=== PATIENT | female | born 1945 | race Caucasian/White ===

== ENCOUNTER 2025-01-23 10:42 | Outpatient (REF) | payer OTHER, SELFPAY ==
--- OUTSIDE RECORDS SUMMARY | 2025-01-23 11:31 | XMS_ITS | Encounter Summary ---
Author Organization [facility] Address [address] [place] [id number] Phone Care Team Providers Care Regional Account Director Name Role Phone Jeb Devlin MD Primary Care Provider [phone] Encounter Details Date Type Department Care Team ([facility] st Contact Info) Description 07/23/2024 Procedure [facility] Scan - [address] [address] Social History Tobacco Use Types Packs/Day Years Used Date Smoking Tobacco: Never Smokeless Tobacco: Never Alcohol Use Standard Drinks/Week Comments Not Currently 0 (1 standard drink = 0.6 oz pur e alcohol) Education Answer Date Recorded Are you interested in more education? Not on debbie e 10/21/2022 Are you concerned about learning? Not on file 10/21/2022 No 10/21/2022 No 10/21/2022 Food Answer Date Recorded Within the past 6 months we worried whether our food would run out before we got money to buy more. Never True 07/24/2024 Within the past 6 months the food we bought just didn't last and we didn't have enough money to get more. Never True Residential Stability Answer Date Recor ded What is your housing situation today? I have paulo sing 07/24/2024 How many times have you move d in the past 12 months? Zero (I did not move) 07/24/2024 Paying for Meds Answer Date Recorded Do you have trouble paying for medicines? No 07/24/2024 Paying Utility Bills Answer Date Record ed Do you have trouble paying your heating or elect ricity bill? No 07/24/2024 Transportation Answer Date Recorded Has the lack of transportati on kept you from medical appointments or from getting medications? No 07/24/2024 Digital Access Answer Date Recorded No 07/24/2024 Yes 07/24/2024 Do you have reliable internet access at home? Ye s 07/24/2024 Do you have a device (e.g., phone, tablet, computer) with a working camera? Yes 07/24/2024 Intimate Partner Violence Answer Date R ecorded Are you denied basic needs s uch as food, clothing, or medical care? No 07/23/2024 In the past 12 months have y ou been in a relationship with a person who hurts, threatens, or tries to control you? No 07/23/2024 Are you denied basic needs s uch as food, clothing, or medical care? No 07/23/2024 In the past 12 months have y ou been in a relationship with a person who hurts, threatens, or tries to control you? No 07/23/2024 Comments Unknown Sex and Gender Information Value Date Recorded Sex Assigned at Female 07/23/2024 3:51 PM EST Legal Sex Female 10:08 PM EDT Gender Identity Female 07/23/2024 3:51 PM EST Sexual Orientation Straight 07/24/2024 9: 38 AM EST documented as of this encounter Functional Status * Calculated C-SSRS Risk Score (Lifetime/Recent) Answer Date of Assessment Author No Risk Indicated 07/23/2024 3:51 PM Gilda Liao, DELANEY * [place] Suicide Severity Rating Scale (Screener/Recent Self-Report) Question Answer Date of Assessment Author 1. Wish to be (Past 1 Month) No 025 3:51 PM Gilda Liao, DELANEY 2. Non-Specific Active Suici ethan Thoughts (Past 1 Month) No 07/23/2024 3:51 PM Gilda Liao , DELANEY 6. Suicidal Behavior (Lifetime) No 3:51 PM Gilda Liao, RN documented as of this encounter Plan of Treatment Not on file documented as of this encounter Visit Diagnoses Not on filedocumented in this encounter Additional Health Concerns Infection Onset Date Last Indicated Resolved Time CoV-Risk 07/23/2024 07/23/2024 08/03/2024 1:22 AM EST Influenza A 07/23/2024 07/23/2024 07/30/2024 1:23 AM EST documented as of this encounter Care Teams Regional Account Director Relationship Specialty Start Date End Date Jeb Devlin MD [address] [address] PCP - General Internal Medicine 09/29/22 documented as of this encounter Additional Source Comments The information contained in this document represents components of the legal health record. It is not the complete legal health record.[facility]
--- OUTSIDE RECORDS SUMMARY | 2025-01-23 11:31 | XMS_ITS | Referral Summary ---
Author Organization [facility] Address [address] [place] [address] Care Team Providers Care Performance Architect Name Role Phone Jeb Devlin Primary Care Provider [phone] Allergies Active Allergy Reactions Criticality Noted Date Comments Minocycline Hives 12/07/2016 Sulfa (Sulfonamide Antibiotics) Hives,Rash High 06/27 Tetracyclines Hives High Medications blood glucose diagnostic test strip BLUE : TEST TWICE DAILY FOR DIABETES 250.02 6 Active simvastatin (ZOCOR) 40 mg tablet TAKE 1 TABLET DAILY IN THE EVENING. 90 tablet 3 8 Active atenolol (TENORMIN) 25 mg tablet Taking 12.5mg per day 7 Active metFORMIN (GLUCOPHAGE) 500 mg tablet Take 1 tablet (500 mg total) by mouth 2 times a day with meals. 180 tablet 3 9 Active amoxicillin (AMOXIL) 500 mg capsule Take 4 capsules (2,000 mg total) by mouth once as needed (one hour prior to dental work) for up to 1 dose. 12 capsule 2 0 Active econazole nitrate 1% cream Apply topically to the affected area once a day. 30 g 3 1 Active blood glucose diagnostic lancet 33 gauge 2 Active acetaminophen (TYLENOL) 325 mg tablet Take 2 tablets (650 mg total) by mouth every 6 hours. 2 Active escitalopram (LEXAPRO) 10 mg tablet Take 1 tablet (10 mg total) by mouth once a day. 2 Active levothyroxine (SYNTHROID, LEVOTHROID) 88 mcg tablet Take 1 tablet (88 mcg total) by mouth daily. 2 Active spironolactone (ALDACTONE) 50 mg tablet Take 1 tablet (50 mg total) by mouth daily. May resume in 1 week if BP>125/80 90 tablet 3 2 Active aspirin 81 mg EC tablet Take 81 mg by mouth once a day. Active calcium carbonate-vitam in D3 250 mg-125 units tablet tablet Take 1 tablet by mouth once a day. Active calcium carbonate-vitam in D3-minerals (Caltrate 600-D Plus Minerals) 600 mg calcium- 800 unit-40 mg tablet,chewable chewable tablet Caltrate 600 A ctive Active Problems Problem Noted Date Diagnosed Date Overactive bladder 09/22/2022 Acquired hammer toe of left foot 04/12/2022 Acquired hammer toe of right foot 04/12/2022 Trigger ring finger of left hand 03/21/2022 Overview (03/21/2022): Added automatically from request for surgery [id number] Arthritis of right knee 10/06/2021 Pathological fracture of left scapula with delay ed healing 09/28/2021 Primary osteoarthritis of left knee 08/15/2019 Intraductal papilloma of left breast 03/08/2018 Overview (03/08/2018): Added automatically from request for surgery [id number] Assessment & Plan (04/16/2018 3:01 PM EDT): Recovering well from excisional biopsy. No evidence of malignancy or atypia on pathology. Healing well. May return to routine follow up with PCP. Copy of pathology given for records. Intraductal papilloma of breast 01/10/2018 Assessment & Plan (03/07/2018 6:39 PM EDT): Newly diagnosed left breast peripheral duct papilloma. I discussed the options at length with the patient today, and have recommended needle localization lumpectomy. I discussed the risks and benefits of surgery, as well as the expected postoperative recovery. I will plan on getting her surgery scheduled at her convenience. All of her questions were answered. 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/2017 Arthritis of carpometacarpal (CMC) joints of bot h thumbs 03/10/2017 Osteoarthritis of carpometac arpal (CMC) joint of right thumb, unspecified osteoarthritis type 10/27/2016 Post-traumatic osteoarthritis of right knee 07/28 Primary osteoarthritis of left knee 08/23/2016 Cough 05/13/2016 Lower back pain 11/03/2015 Screening for colon cancer 09/29/2015 Pain in joint, hand 04/09/2015 Carpal tunnel syndrome 03/17/2015 Thumb pain, right 03/17/2015 Bilateral knee pain 11/26/2014 Aftercare following bilateral hip joint replacem ent surgery 08/28/2014 Type 2 diabetes mellitus without complication Obesity 04/17/2014 Primary osteoarthritis of both hips 02/06/2014 History of stroke 07/03/2013 Vitamin d deficiency 04/10/2013 History of left hip replacement 09/27/2011 Hypothyroidism 03/01/2009 Hypercholesterolemia 03/01/2009 Hypertension 03/01/2009 Gait instability Impaired mobility Resolved Problems Problem Noted Date Diagnosed Date Resolved Date Anemia 09/23/2015 02/19/2021 Low vitamin B12 level 05/29/20142020 Urinary incontinence 10/08/2013 021 Immunizations Immunization Administration Dates Next Due INFLUENZA, SPLIT VIRUS, TRIVALENT, PF 04/01/2016 Influenza, Trivalent, MDV, Injectable 03/19/2014 Pneumococcal Conjugate Vaccine, 13 Valent 2016 Pneumococcal Polysaccharide Vaccine, 23 Valent 0 03/24/2008 Tetanus and Diphtheria Toxoi ds, Adsorbed, Preservative Free, for Adult Use (5 Lf of Tetanus Toxoid and 2 Lf of Diphtheria Toxoid) 05/08/2008 Social History Tobacco Use Types Packs/Day Years Used Date Smoking Tobacco: Never Smokeless Tobacco: Never Tobacco Cessation:Counseling Given: Not Answered Comments:: Alcohol Use Standard Drinks/Week Comments Yes 1 (1 standard drink = 0.6 oz pur e alcohol) Comments No Sex and Gender Information Value Date Recorded Sex Assigned at Female 01/23/2021 11:59 AM EDT Legal Sex Female 11:59 PM EDT Gender Identity Female 11/27/2019 10:38 AM EDT Sexual Orientation Straight 11/27/2019 10 :38 AM EDT Last Filed Vital Signs Vital Sign Reading Time Taken Comments Blood Pressure 128/64 10/27/2022 10:33 AM EDT Pulse 55 10/11/2021 12:44 PM EDT Temperature 36.8 C (98.2 F) 08/02/2022 8:50 AM EST Respiratory Rate 18 10/11/2021 12:44 PM EDT Oxygen Saturation 96% 10/11/2021 12:44 PM EDT Inhaled Oxygen Concentration - - Weight 83 kg (183 lb) 10/14/2024 9:57 AM EDT Height 152.4 cm (5') 10/14/2024 9:57 AM EDT Body Mass Index 35.74 10/14/2024 9:57 AM EDT Plan of Treatment Not on file Medical Devices Implanted Type Area Fur Operator Device Identifier Shelf Expiration Date Model / Serial / Lot Cement Tobramycin Impreganated Simplex P - [id number] Implanted:Qty: 2 on 08/15/2019 by Jose Luis Kim MD at [facility] Implant Left: Knee DU 12/23/2020 6197-9-00 1 / / [id number] Base Tibial Fixed Bearing Cemented Size 5 Attune - [id number] Implanted:Qty: 1 on 08/15/2019 by Jose Luis Kim MD at [facility] Implant Left: Knee DEPUY 05/25/2029 1506-70-0 05 / [id number] Patella Medialized Dome Cemented Aox Single Use Latex Free 32mm Attune - [id number] Implanted:Qty: 1 on 08/15/2019 by Jose Luis Kim MD at [facility] Implant Left: Knee DEPUY 03/25/2024 1518-20-0 32 / / [id number] Component Femoral Posterior Stabilized Cemented Narrow Left Sterile Latex Free Size 6n Attune - [id number] Implanted:Qty: 1 on 08/15/2019 by Jose Luis Kim MD at [facility] Implant Left: Knee DEPUY 04/25/2029 1504-10-1 26 / / [id number] Insert Tibial Fiexd Bearing Posterior Stabilizing Sterile Latex Free Size 6 5mm Attune - [id number] Implanted:Qty: 1 on 08/15/2019 by Jose Luis Kim MD at [facility] Implant Left: Knee DEPUY 02/24/2024 1516-40-6 05 / / [id number] Insert Tibial Fixed Bearing Posterior Stabilized Size 5 6mm Attune - [id number] Implanted:Qty: 1 on 10/06/2021 by Jose Luis Kim MD at [facility] Implant Right: Knee DEPUY 09/24/2023 1516-40-5 06 / / [id number] Cement Tobramycin Impreganated Simplex P - [id number] Implanted:Qty: 2 on 10/06/2021 by Jose Luis Kim MD at [facility] Implant Right: Knee DU 12/23/2022 6197-9-00 1 / / [id number] Base Tibial Fixed Bearing Cemented Size 5 Attune - [id number] Implanted:Qty: 1 on 10/06/2021 by Jose Luis Kim MD at [facility] Implant Right: Knee DEPUY 04/25/2031 1506-70-0 05 / / [id number] Patella Medialized Dome Cemented Aox Single Use Latex Free 32mm Attune - [id number] Implanted:Qty: 1 on 10/06/2021 by Jose Luis Kim MD at [facility] Implant Right: Knee DEPUY 08/23/2025 1518-20-0 32 / / [id number] Component Femoral Posterior Stabilized Cemented Right Sterile Latex Free Size 5 Attune - [id number] Implanted:Qty: 1 on 10/06/2021 by Jose Luis Kim MD at [facility] Implant Right: Knee DEPUY 08/23/2030 1504-10-2 05 / / [id number] Screw Cannulated Self-Tapping Self-Drilling Partial Threaded Stainless Steel 4.7gju04lf - [id number] Implanted:Qty: 1 on 10/06/2021 by Jose Luis Kim MD at [facility] Screw Right: Knee DEPUY [employer]ES 214.568 / / Screw Cannulated Self-Tapping Self-Drilling Partial Threaded Stainless Steel 4.4fhn27hl - [id number] Implanted:Qty: 1 on 10/06/2021 by Jose Luis Kim MD at [facility] Screw Right: Knee DEPUY [employer] SALES 214.572 / / Screw Cannulated Self-Tapping Self-Drilling Partial Threaded Stainless Steel 4.1skm99nw - [id number] Implanted:Qty: 1 on 10/06/2021 by Jose Luis Kim MD at [facility] Screw Right: Knee [employer] 214.554 / / Procedures * Due to [place] state law, this organization might not be sharing negative HIV tests. Procedure Name Priority Date/Time Associated Diagnosis Comments ROBIN LEFT STEREOTACTIC BREAST BIOPSY Routine 10/14/2024 10:48 AM EDT Breast calcifications BASIC METABOLIC PANEL Timed 2021 3:59 AM EDT HEMOGLOBIN A1C Routine 09/21/2021 1:25 PM EDT Preop testing Post-traumatic osteoarthritis of right knee HM DIABETES EYE EXAM Routine 09/04/2018 MICROALBUMIN, RANDOM URINE WITH CREATININE Routine 11/18/2016 8:44 AM EDT COLONOSCOPY 04/05/2016 7:44 AM EDT from Last 3 Months or Most Recently Relevant to Health Maintenance Results * Due to [place] state law, this organization might not be sharing negative HIV tests. * ROBIN Left Stereotactic Breast Biopsy (10/14/2024 10:48 AM EDT) Anatomical Region Laterality Modality Breast Left Mammography Addenda Addendum by Adraina Parham MD on 10/15/2024 9:41 PM EDT Pathology: A. Left breast, needle biopsy (calcifications): Breast tissue with fibroadenomatous change and coarse calcifications; no atypia or malignancy identified. B. Left breast, needle biopsy (no calcifications): Breast tissue within normal limits; no atypia or malignancy identified. Concordance: Pathology findings are benign and concordant with imaging findings. Recommendation: Return to annual screening mammography schedule Narrative 10/14/2024 12:34 PM EDT Gabbie Miles Exam Date: 10/14/[address] [address] ROBIN Left Stereotactic Breast Biopsy ROBIN Left Breast Specimen NC ROBIN Left Diagnostic Digital Mammo Post US/MRI/Stereo INDICATIONS Gabbie Miles is a 79 y.o. female and is seen for: ROBIN Left Stereotactic Breast Biopsy ROBIN Left Breast Specimen NC ROBIN Left Diagnostic Digital Mammo Post US/MRI/Stereo. PROCEDURE The procedure was explained to the patient including benefits and alternatives. The risks, including but not limited to infection and bleeding, were reviewed and the patient agreed to undergo the procedure, signing the consent form. The breast was prepped for the procedure and the area was anesthetized with a local anesthetic. The patient's Left breast was imaged with the [facility] digital mammography unit, and the following findings were obtained: Lower inner breast grouped calcifications are redemonstrated. A Eviva needle was placed in the target using medial approach. Then one passes were made through the area and seven specimens were obtained. A Top-Hat micromarker was placed at the site of the procedure. Specimen radiograph demonstrates calcifications in 1 of the core samples. COMPLICATIONS The patient experienced no complications during the procedure. POST PROCEDURE MAMMOGRAM The patient was then moved to a digital mammographic room where CC and ML90 full field digital mammographic images of the breast were obtained. These show satisfactory placement of the micromarker. IMPRESSION Technically successful left breast stereotactic biopsy. Pathology pending. If this radiology report contains a blank impression section, it is an incomplete radiology report. Please contact the interpreting radiologist or applicable radiology division as soon as possible to obtain the completed interpretation. Adriana Parham MD [facility] PROCEDURES Edited Result - Final * (ABNORMAL) Basic Metabolic Panel (2021 3:59 AM EDT) NA 134(L) 135 - 145 mmol/L 2021 4:55 AM EDT [facility] K 4.6 3.5 - 5.3 mmol/L 2021 4:55 AM EDT [facility] Cl 105 97 - 110 mmol/L 2021 4:55 AM EDT [facility] CO2 25 24 - 32 mmol/L 2021 4:55 AM EDT [facility] BUN 13 7 - 23 mg/dL 2021 4:55 AM EDT [facility] Creatinine 0.70 0.50 - 1.20 mg/dL 2021 4:55 AM EDT [facility] Glucose 156(H) 70 - 99 mg/dL 2021 4:55 AM EDT [facility] Calcium 7.8(L) 8.7 - 10.7 mg/dL 2021 4:55 AM EDT [facility] Anion Gap 4(L) 5 - 15 2021 4:55 AM EDT [facility] eGFR 90 >=90 mL/min/1. 73m2 2021 4:55 AM T [facility] Comment: Estimated Glomerular Filtration Rate (GFR) calculated using the CKD-EPI refit equation. The different stages of CKD form a continuum. The stages of CKD are classified as follows : Stage 1: Kidney damage with normal or increased GFR (>90 mL/min/1.73 m2) Stage 2: Mild reduction in GFR (60-89 mL/min/1.73 m2) Stage 3a: Moderate reduction in GFR (45-59 mL/min/1.73 m2) Stage 3b: Moderate reduction in GFR (30-44 mL/min/1.73 m2) Stage 4: Severe reduction in GFR (15-29 mL/min/1.73 m2) Stage 5: Kidney failure (GFR < 15 mL/min/1.73 m2 or dialysis) Blood Structure of peripheral vein / Unknown Venipuncture / Unknown 2021 3:59 AM EDT 2021 4:32 AM EDT us Jose Luis Kim MD LAB BLOOD ORDERABLES Final Res ult [facility] [address] [place] [address], * (ABNORMAL) Hemoglobin A1c (09/21/2021 1:25 PM EDT) Hemoglobin A1C 6.2(H) <5.7 % of total Hgb 09/22/2021 4:39 AM EDT [facility] Comment: For someone without known diabetes, a hemoglobin A1c value between 5.7% and 6.4% is consistent with prediabetes and should be confirmed with a follow-up test. For someone with known diabetes, a value <7% indicates that their diabetes is well controlled. A1c targets should be individualized based on duration of diabetes, age, comorbid conditions, and other considerations. This assay result is consistent with an increased risk of diabetes. Currently, no consensus exists regarding use of hemoglobin A1c for diagnosis of diabetes for children. eAG (MG/DL) 131 mg/dL 09/22/2021 4:39 AM EDT [facility] eAG (MMOL/L) 7.3 mmol/L 09/22/2021 4:39 AM EDT [facility] Blood Structure of peripheral vein / Unknown Venipuncture / Unknown 09/21/2021 1:25 PM EDT 09/21/2021 3:16 PM EDT Narrative [facility] - 09/22/2021 4:39 AM EDT [facility] Received Date: Vaibhav Carmona MD LAB BLOOD ORDERABLES Final Result [facility] [address], [place] [address], [place] [phone] [employer] [facility] [address], [place] [address], [place] [phone] * Eye Exam, Diabetic (09/04/2018) us Unknown Provider HEALTH MAINTENANCE Final Res ult * Microalbumin/Creatinine Urine, Random (11/18/2016 8:44 AM EDT) Creatinine, Random Urine 189 20 - 320 mg/dL [facility] Microalbumin 1.2 mg/dL [facility] Comment: Reference Range Not established Microalbumin/Crea tinine Ratio, Random Urine 6 <30 mcg/mg creat [employer] [facility] Comment: . The ADA defines abnormalities in albumin excretion as follows: . Category Result (mcg/mg creatinine) . Normal <30 Microalbuminuria 30-299 Clinical albuminuria > OR = 300 . The ADA recommends that at least two of three specimens collected within a 3-6 month period be abnormal before considering a patient to be within a diagnostic category. 11/18/2016 8:44 AM EDT 11/18/2016 5:16 PM EDT Narrative [employer] [facility] - 11/19/2016 9:00 AM EDT Report Comments: Received Date: [id number] us Stewart Nazario MD LAB URINE ORDERABLES Fin al Result [employer] [address], [facility] [place] [address], * COLONOSCOPY (04/05/2016 7:44 AM EDT) Narrative Procedure Note Eldon Stringer MD - 04/05/2016 7:44 AM EDT Patient Name: Gabbie Miles Procedure Date: 04/05/2016 7:44AM Date of : 1945 Admit Type: Outpatient Age: 70 Room: Room 1 Gender: Female Note Status: Finalized Attending MD: Eldon Stringer MD Procedure: Colonoscopy Indications: High risk colon cancer surveillance: Personal history of colonicpolyps Comorbidities Providers: Eldon Stringer MD Referring MD: Stewart Nazario MD (Referring MD) Requesting Provider: Medicines: Fentanyl 100 micrograms IV, Midazolam 5 mg IV Complications: No immediate complications. Estimated Blood Loss: Estimated blood loss: none. Procedure: After I obtained informed consent, the scope was passed under direct vision. Throughout the procedure, the patient's blood pressure, pulse, and oxygen saturations were monitored continuously. The Colonoscope was introduced through the anus and advanced to the cecum, identified by appendiceal orifice and ileocecal valve.The colonoscopy was technically difficult and complex dueto multiple diverticula in the colon and unsatisfactorybowel prep. Successful completion of the procedure was aidedby increasing the dose of sedation medication, usingmanual pressure and lavage. The patient tolerated theprocedure well. The quality of the bowel preparation was adequateto identify polyps. The bowel preparation used wasMiralax. Findings: The perianal and digital rectal examinations were normal. A small polyp was found in the cecum. The polyp was sessile. Thepolyp was removed with a hot biopsy forceps. Resection and retrieval were complete. Estimated blood loss: none. Multiple small and large-mouthed diverticula were found in thesigmoid colon, in the descending colon and in the transverse colon. The retroflexed view of the distal rectum and anal verge was normaland showed no anal or rectal abnormalities. Impression: - One small polyp in the cecum. Resected andretrieved. - Diverticulosis in the sigmoid colon, in thedescending colon and in the transverse colon. - The distal rectum and anal verge are normal on retroflexion view. Recommendation: - Await pathology results. - Discharge patient to home (ambulatory). - Repeat colonoscopy in 3 years for surveillance basedon pathology results. Eldon Stringer MD 04/05/2016 9:22:55 AM This report has been signed electronically. Number of Addenda: 0 Note Initiated On: 04/05/2016 7:44 AM Eldon Stringer MD PROVATION PROCEDURES Final Resu lt from Last 3 Months or Most Recently Relevant to Health Maintenance Insurance [facility] Advance Directives Documents on File Type Date Recorded Patient [place] Worker Expl anation Health Care Proxy 10/06/2021 10:11 AM Health Care Proxy 01/12/2021 Health Care Proxy 08/05/2019 8:57 AM Advance Directive 01/22/2016 12:00 AM Adva nce Care Directives Health Care Proxy 01/17/2016 12:00 AM [facility] Care Proxy Advance Directive 08/18/2014 12:00 AM angeline M edical Dec Making (Adv.Dir) Advance Directive 08/17/2014 12:00 AM Adva nce Care Directives * Full Code (Latest Code Status on File) Date Activated Date Inactivated Comments 10/06/2021 4:11 PM 10/11/2021 7:31 PM * Presumed Full Code Date Activated Date Inactivated Comments 10/06/2021 9:24 AM 10/06/2021 4:11 PM * Full Code Date Activated Date Inactivated Comments 08/15/2019 3:33 PM 08/17/2019 7:01 PM * Presumed Full Code Date Activated Date Inactivated Comments 08/15/2019 7:48 AM 08/15/2019 3:33 PM * Full Code Date Activated Date Inactivated Comments 04/06/2018 6:44 AM 04/06/2018 4:39 PM Care Teams Performance Architect Relationship Specialty Start Date End Date Jeb Devlin NPNa: [phone] [address] [place] [address] PCP - General Internal Medicine 02/27/19
[2025-01-23 12:15] LABS: Alanine Aminotransferase 14 U/L (0-31); Albumin Level 4.2 g/dL (3.5-5.0); Alkaline Phosphatase 62 U/L (39-117); Anion Gap 12 (12-20); Aspartate Amino Transferase 29 U/L (5-31); Blood Urea Nitrogen 13 mg/dL (9-16); Calcium 8.8 mg/dL (8.4-10.2); Carbon Dioxide 27 mmol/L (22-29); Chloride 106 mmol/L (96-108); Cholesterol 184 mg/dL (<200); Estimated Glomerular Filt Rate > 60; HDL Cholesterol 40 mg/dL (>40); Potassium 4.3 mmol/L (3.3-5.1); Sodium 141 mmol/L (135-145); Total Protein 7.3 g/dL (6.5-8.0); Triglycerides 203 mg/dL (<150)
[2025-01-23 12:31] LABS: Thyroid Stimulating Hormone 1.18 uIU/mL (0.32-4.0)
[2025-01-23 12:39] LABS: Folate 5.4 ng/mL (> or = 4.0); Vitamin B12 152 pg/mL (200-900)
[2025-01-23 12:51] LABS: Microalbum/Creatinine Ratio Ur 8.2 ug/mg cr (<30)
== END 2025-01-23 10:43 | disposition home or self-care (01) ==
LOC: HO.LAB 10:42
PROVIDERS: PCP Internal Medicine; Visit Provider Internal Medicine
DX: E11.9 Type 2 diabetes mellitus without complications (principal); R41.3 Other amnesia; E03.9 Hypothyroidism, unspecified; E78.5 Hyperlipidemia, unspecified; R80.9 Proteinuria, unspecified
CPT/HCPCS: 36415; 80053; 80061; 82043; 82570; 82607; 82746; 84443

== ENCOUNTER 2025-01-27 09:29 | Outpatient (REF) | payer OTHER, SELFPAY ==
--- OUTSIDE RECORDS SUMMARY | 2025-01-27 09:59 | XMS_ITS | Referral Summary ---
Author Organization [facility] Address [address] [place] [address] Care Team Providers Care Heating Systems Installer Name Role Phone Jeb Devlin Primary Care Provider [phone] Allergies Active Allergy Reactions Criticality Noted Date [...] (03/21/2022): Added automatically from request for surgery [id number] Arthritis of right knee 10/06/2021 Pathological fracture of left scapula with delay ed healing 09/28/2021 Primary osteoarthritis of left knee 08/15/2019 Intraductal papilloma of left breast 03/08/2018 Overview (03/08/2018): Added automatically from request for surgery [id number] Assessment & Plan (04/16/2018 3:01 PM EDT): [...] on file Medical Devices Implanted Type Area Pipe Coverer Helper Device Identifier Shelf Expiration Date Model / Serial / Lot Cement Tobramycin Impreganated Simplex P - [id number] Implanted:Qty: 2 on 08/15/2019 by Jose Luis Kim MD at [facility] Implant Left: Knee DU 12/23/2020 6197-9-00 1 / / [id number] Base Tibial Fixed Bearing Cemented Size 5 Attune - [id number] Implanted:Qty: 1 on 08/15/2019 by Jose Luis Kim MD at [facility] Implant Left: Knee DEPUY 05/25/2029 1506-70-0 05 / [id number] Patella Medialized Dome Cemented Aox Single Use Latex Free 32mm Attune - [id number] Implanted:Qty: 1 on 08/15/2019 by Jose Luis Kim MD at [facility] Implant Left: Knee DEPUY 03/25/2024 1518-20-0 32 / / [id number] Component Femoral Posterior Stabilized Cemented Narrow Left Sterile Latex Free Size 6n Attune - [id number] Implanted:Qty: 1 on 08/15/2019 by Jose Luis Kim MD at [facility] Implant Left: Knee DEPUY 04/25/2029 1504-10-1 26 / / [id number] Insert Tibial Fiexd Bearing Posterior Stabilizing Sterile Latex Free Size 6 5mm Attune - [id number] Implanted:Qty: 1 on 08/15/2019 by Jose Luis Kim MD at [facility] Implant Left: Knee DEPUY 02/24/2024 1516-40-6 05 / / [id number] Insert Tibial Fixed Bearing Posterior Stabilized Size 5 6mm Attune - [id number] Implanted:Qty: 1 on 10/06/2021 by Jose Luis Kim MD at [facility] Implant Right: Knee DEPUY 09/24/2023 1516-40-5 06 / / [id number] Cement Tobramycin Impreganated Simplex P - [id number] Implanted:Qty: 2 on 10/06/2021 by Jose Luis Kim MD at [facility] Implant Right: Knee DU 12/23/2022 6197-9-00 1 / / [id number] Base Tibial Fixed Bearing Cemented Size 5 Attune - [id number] Implanted:Qty: 1 on 10/06/2021 by Jose Luis Kim MD at [facility] Implant Right: Knee DEPUY 04/25/2031 1506-70-0 05 / / [id number] Patella Medialized Dome Cemented Aox Single Use Latex Free 32mm Attune - [id number] Implanted:Qty: 1 on 10/06/2021 by Jose Luis Kim MD at [facility] Implant Right: Knee DEPUY 08/23/2025 1518-20-0 32 / / [id number] Component Femoral Posterior Stabilized Cemented Right Sterile Latex Free Size 5 Attune - [id number] Implanted:Qty: 1 on 10/06/2021 by Jose Luis Kim MD at [facility] Implant Right: Knee DEPUY 08/23/2030 1504-10-2 05 / / [id number] Screw Cannulated Self-Tapping Self-Drilling Partial Threaded Stainless Steel 4.6obx01ur - [id number] Implanted:Qty: 1 on 10/06/2021 by Jose Luis Kim MD at [facility] Screw Right: Knee DEPUY [employer] 214.568 / / Screw Cannulated Self-Tapping Self-Drilling Partial Threaded Stainless Steel 4.4bqa69wq - [id number] Implanted:Qty: 1 on 10/06/2021 by Jose Luis Kim MD at [facility] Screw Right: Knee DEPUY [employer] 214.572 / / Screw Cannulated Self-Tapping Self-Drilling Partial Threaded Stainless Steel 4.6sqi07uv - [id number] Implanted:Qty: 1 on 10/06/2021 by Jose Luis Kim MD at [facility] Screw Right: Knee [employer] 214.554 / / Procedures * Due to [place] state law, this organization might not be [...] to Health Maintenance Results * Due to [place] state law, this organization might not be sharing negative HIV tests. * ROBIN Left Stereotactic Breast Biopsy (10/14/2024 10:48 AM EDT) Anatomical Region Laterality Modality Breast Left Mammography Addenda Addendum by Adriana Parham MD on 10/15/2024 9:41 PM EDT [...] PM EDT Gabbie Miles Exam Date: 10/14/[address] [address] ROBIN Left Stereotactic Breast Biopsy ROBIN Left [...] patient's Left breast was imaged with the Apptiveia digital mammography unit, and the following findings [...] obtain the completed interpretation. Adriana Parham MD [facility] PROCEDURES Edited Result - Final * (ABNORMAL) Basic Metabolic Panel (2021 3:59 AM EDT) NA 134(L) 135 - 145 mmol/L 2021 4:55 AM EDT [facility] K 4.6 3.5 - 5.3 mmol/L 2021 4:55 AM EDT [facility] Cl 105 97 - 110 mmol/L 2021 4:55 AM EDT [facility] CO2 25 24 - 32 mmol/L 2021 4:55 AM EDT [facility] BUN 13 7 - 23 mg/dL 2021 4:55 AM EDT [facility] Creatinine 0.70 0.50 - 1.20 mg/dL 2021 4:55 AM EDT [facility] Glucose 156(H) 70 - 99 mg/dL 2021 4:55 AM EDT [facility] Calcium 7.8(L) 8.7 - 10.7 mg/dL 2021 4:55 AM EDT [facility] Anion Gap 4(L) 5 - 15 2021 4:55 AM EDT [facility] eGFR 90 >=90 mL/min/1. 73m2 2021 4:55 AM T [facility] Comment: Estimated Glomerular Filtration [...] MD LAB BLOOD ORDERABLES Final Res ult [facility] [address] [place] [address], * (ABNORMAL) Hemoglobin A1c (09/21/2021 1:25 PM EDT) Hemoglobin A1C 6.2(H) <5.7 % of total Hgb 09/22/2021 4:39 AM EDT [facility] Comment: For someone without known diabetes, a [...] (MG/DL) 131 mg/dL 09/22/2021 4:39 AM EDT [facility] eAG (MMOL/L) 7.3 mmol/L 09/22/2021 4:39 AM EDT [facility] Blood Structure of peripheral vein / Unknown Venipuncture / Unknown 09/21/2021 1:25 PM EDT 09/21/2021 3:16 PM EDT Narrative [facility] - 09/22/2021 4:39 AM EDT [facility] Received Date: Vaibhav Carmona MD LAB BLOOD ORDERABLES Final Result [facility] [address], [place] [address], [place] [phone] [facility] [employer] [facility] [address], [place] [address], [place] [phone] * Eye Exam, Diabetic (09/04/2018) us Unknown Provider HEALTH MAINTENANCE Final Res ult * Microalbumin/Creatinine Urine, Random (11/18/2016 8:44 AM EDT) Creatinine, Random Urine 189 20 - 320 mg/dL [facility] Microalbumin 1.2 mg/dL [facility] Comment: Reference Range Not established Microalbumin/Crea tinine Ratio, Random Urine 6 <30 mcg/mg creat [facility] [employer] [facility] Comment: . The ADA defines abnormalities in [...] AM EDT 11/18/2016 5:16 PM EDT Narrative [facility] [employer] [facility] - 11/19/2016 9:00 AM EDT Report Comments: Received Date: [id number] us Stewart Nazario MD LAB URINE ORDERABLES Fin al Result [facility] [address], [facility] [place] [address], * COLONOSCOPY (04/05/2016 7:44 AM EDT) Narrative [...] Most Recently Relevant to Health Maintenance Insurance [facility] Advance Directives Documents on File Type Date Recorded Patient Coin Purse Framer Expl anation Health Care Proxy 10/06/2021 10:11 AM Health Care Proxy 01/12/2021 Health Care Proxy 08/05/2019 8:57 AM Advance Directive 01/22/2016 12:00 AM Adva nce Care Directives Health Care Proxy 01/17/2016 12:00 AM [facility] Care Proxy Advance Directive 08/18/2014 12:00 [...] 6:44 AM 04/06/2018 4:39 PM Care Teams Heating Systems Installer Relationship Specialty Start Date End Date Jeb Devlin NPNa: [id number] [address] [place] [address] PCP - General Internal Medicine 02/27/19
--- OUTSIDE RECORDS SUMMARY | 2025-01-27 09:59 | XMS_ITS | Encounter Summary ---
Author Organization [facility] Address [address] [place] [address] Phone Care Team Providers Care Handbag Operator Name Role Phone Jeb Devlin MD Primary Care Provider [phone] Encounter Details Date Type Department Care Team ([facility] st Contact Info) Description 07/23/2024 Procedure Pass [facility], Ct Scan - [address] [address] Social History Tobacco Use Types Packs/Day Years [...] 07/23/2024 3:51 PM Gilda Liao, DELANEY * [place] Suicide Severity Rating Scale (Screener/Recent Self-Report) Question [...] documented as of this encounter Care Teams Handbag Operator Relationship Specialty Start Date End Date Jeb Devlin MD [address] [address] PCP - General Internal Medicine 09/29/22 documented as of this encounter Additional Source Comments The information contained in this document represents components of the legal health record. It is not the complete legal health record.[facility]
[2025-01-30 18:14] LABS: Intrinsic Factor Antibodies Negative (Negative)
== END 2025-01-27 09:30 | disposition home or self-care (01) ==
LOC: HO.LAB 09:29
PROVIDERS: Visit Provider Internal Medicine
DX: Z01.84 Encounter for antibody response examination (principal); E53.8 Deficiency of other specified B group vitamins
CPT/HCPCS: 36415; 83516; 86340

== ENCOUNTER 2025-01-30 09:02 | Outpatient (AMB) | payer MEDICARE, SELFPAY ==
--- NOTE | 2025-01-30 09:11 | A.OFFPC_ITS ---
Vital Signs 01/30/25 09:15 Height 4 ft 11.65 in Weight 178 lb BMI 35.2 BP 112/62 Blood Pressure Location Lt brachial Position Sitting Pulse 55 Pulse Source Pulse Oximeter Pulse Oximetry (%) 96 Oxygen Delivery Method Room Air Intake Visit Reasons: establish care Intake Note: Patient here to establish care Class A Regional Truck Driver Required: No Accompanied by: Self / Same As Patient Allergies Sulfa (Sulfonamide Antibiotics) Allergy (Severe, Verified 01/30/25 09:24) Hives Medication List - Last Reconciled 01/30/25 by Jennifer Paez MD atenolol 12.5 mg PO DAILY levothyroxine 88 mcg PO QAM lisinopril 10 mg PO DAILY simvastatin 40 mg PO QPM spironolactone 50 mg PO DAILY Tobacco use date assessed: 01/30/25 Fall risk assessment: No Falls in past year Last assessed Fall Risk: 01/30/25 Dental Screening Dental Screen Date: 01/30/25 Did you have a dental visit in the last 12 months?: Yes Did you have a dental problem in the last 6 months where you did not have access to dental care?: No Was dental information given to patient?: Patient has dentist HPI HPI Comments History of Present Illness Details The patient is a 79-year-old female presenting with the need to establish care and manage her chronic conditions. She has a history of diabetes mellitus type 2, with a current hemoglobin A1c of 7.5%. She is on metformin, although she does not recall the dosage. The patient also has hypercholesterolemia and is currently taking simvastatin 40 mg. She has been diagnosed with hypothyroidism and is on levothyroxine therapy. Hypertension is another chronic condition she manages with atenolol 12.5 mg and spironolactone. The patient is obese with a BMI of 35.2, and she acknowledges the need for dietary and exercise interventions. She has difficulty remembering things, which may impact her medication adherence and management of her conditions. Preventative care measures include a bone density screening, as she does not recall her last test. [facility] Surgical History History of History of surgery on left wrist Family History Mother No problems noted. Father Cancer Social History Housing: House Alcohol intake: current Alcohol intake frequency: a few times a month Alcohol type: wine Patient Tobacco Use Status: Never used Tobacco e-Cigarette/Vaping Use: Never Used Second Hand Smoke Exposure: No service: No Current occupational status: disabled Cognitive needs: No Hearing needs: No Vision needs: Yes Questionnaire PHQ-9 Over the last 2 weeks, how often have you been bothered by any of the following problems? 1. Little interest or pleasure in doing things: not at all 2. Feeling down, depressed, or hopeless: not at all 3. Trouble falling or staying asleep, or sleeping too much: not at all 4. Feeling tired or having little energy: not at all 5. Poor appetite or overeating: not at all 6. Feeling bad about yourself - or that you are a failure or have let yourself or your family down: not at all 7. Trouble concentrating on things, such as reading the newspaper or watching television: not at all 8. Moving or speaking so slowly that other people could have noticed. Or the opposite - being so fidgety or restless that you have been moving around a lot more than usual: not at all 9. Thoughts that you would be better off or of hurting yourself in some way: not at all Total score: 0 Depression Screening Interpretation: Negative Depression Screening Done: Yes 99150 - PHQ-9 Billing: Yes Source: Developed by Drs. Jose Wu, Mireya Manriquez, Jax Moran and colleagues, with an educational porfirio from [employer]. Thrive Questionnaire Date Thrive assessed: 01/30/25 I am a: Patient What is your living situation today?: I have a steady place to live Within the past 12 months, did the food you bought not last and you didn't have the money to get more?: Never true Within the past 12 months, did you worry whether your food would run out before you got money to buy more?: Never true Do you have trouble paying for medicines?: No Do you have trouble getting transportation to medical appointments?: No Do you have trouble paying your heating and electricity bill?: No Do you have trouble taking care of your child, family member or friend?: No Do you have trouble with day-to-day activities such as bathing, preparing meals, shopping, managing finances, etc.?: No Are you currently unemployed and looking for a job?: No Are you interested in more education?: No Please select the resources that you would like help with: None Currently or been in a relationship where the following occur: No concerns reported THRIVE Score: 0 AUDIT C Alcohol Use Questionnaire (AUDIT-C) 1. How often do you have a drink containing alcohol?: 2-4 times a month 2. How many drinks containing alcohol do you have on a typical day when you are drinking?: 1 or 2 3. How often do you have six or more drinks on one occasion?: Never Total Score: 2 Score Reviewed/Action Taken: No ACOSTA-7 AMB Questionnaire ACOSTA-7 Date ACOSTA - 7 assessed: 01/30/25 Feeling nervous, anxious, or on edge: 0 = Not at all Not being able to stop or control worryin = Not at all Worrying too much about different things: 0 = Not at all Trouble relaxin = Not at all Being so restless that it is hard to sit still: 0 = Not at all Becoming easily annoyed or irritable: 0 = Not at all Feeling afraid as if something awful might happen: 0 = Not at all Total ACOSTA-7 score (0-4 normal; 5-9 mild; 10-14 moderate; 15-21 severe): 0 Source: Developed by Drs. Jose Wu, Mireya Manriquez, Jax Moran and colleagues, with an educational porfirio from [employer]. ACOSTA-7 Assessment Billing ACOSTA-7 Assessment Tool: ACOSTA-7 Assessment 97871 Review of Systems Const All systems reviewed & are unremarkable except as noted in HPI and below Card Denies chest pain at rest, Denies chest pain with activity, Denies edema, Denies irregular heart rhythm, Denies claudication, Denies dyspnea, Denies dyspnea on exertion, Denies orthopnea, Denies paroxysmal nocturnal dyspnea and Denies slow heart rate Resp Denies cough, Denies dyspnea and Denies dyspnea on exertion GI Denies abdominal pain, Denies change in bowel habits, Denies excessive flatus, Denies nausea and Denies vomiting Physical exam (Primary Care) Vital Signs: Last Vital Signs Pulse 55 01/30/25 09:15 BP 112/62 01/30/25 09:15 Pulse Ox 96 01/30/25 09:15 Oxygen Delivery Method Room Air 01/30/25 09:15 BMI result Body Mass Index 35.2 BMI Assessment/Plan discussion: High BMI High, discussed plan: lifestyle, weight reduction, dietary and physical activity Tobacco/Smoking Status: Tobacco use Status Tobacco use date assessed 01/30/25 01/30/25 09:22 Patient Tobacco Use Status Never used Tobacco 01/30/25 09:22 e-Cigarette/Vaping Use Never Used 01/30/25 09:22 PHQ-9: PHQ-9 Score PHQ-9: Total score 0 01/30/25 09:36 Depression Screening Interpretation: Negative Thrive Assessment: Date of Thrive Assessment Date Thrive assessed 01/30/25 01/30/25 09:12 Currently or been in a relationship where the following occur: No concerns reported Resp Effort & Inspection: normal respiratory effort Auscultation: clear to auscultation bilaterally Cardio Jugular venous distension: no JVD Rate: regular rate Rhythm: regular rhythm Heart sounds: S1 normal heart sound present and S2 normal heart sound present Extrem General: Yes full ROM Results AMB Hemoglobin A1c AMB Hemoglobin A1c 7.5 % Last Edit by RHEA Walker on 01/30/25 09:4 6 Results Reviewed Results Reviewed: Laboratory Last Values Hgb A1c (Clinic) 7.5 % (4.0-6.0) H 01/30/25 09:45 Coding Level of Care Code New Pt Level 4 (73554) Complex EM visit Add On G2211 Diagnoses Type 2 diabetes mellitus with hyperglycemia, without long-term current use of insulin E11.65 Diabetes mellitus type: type 2 Diabetes mellitus jail insulin use: without petroleum terminal plant operator use Diabetes mellitus complication status: with hyperglycemia Essential hypertension I10 Acquired hypothyroidism E03.9 Pure hypercholesterolemia E78.00 Obesity, Class II, BMI 35-39.9 E66.812 Mild cognitive impairment G31.84 Additional Codes ACOSTA-7 Assessment Billing - ACOSTA-7 Assessment Tool: ACOSTA-7 Assessment 79920 ([id number]) PHQ-9 - 84961 - PHQ-9 Billing: Yes ([id number]) Time Spent (min) 26 Assessment & Plan Assessment & Plan (1) Diabetes mellitus: Code(s): E11.9 - Type 2 diabetes mellitus without complications Category: Medical Qualifiers: Diabetes mellitus type: type 2 Diabetes mellitus petroleum terminal plant operator insulin use: without jail use Diabetes mellitus complication status: with hyperglycemia Qualified Code(s): E11.65 - Type 2 diabetes mellitus with hyperglycemia (2) Essential hypertension: Code(s): I10 - Essential (primary) hypertension Category: Medical (3) Acquired hypothyroidism: Code(s): E03.9 - Hypothyroidism, unspecified Category: Medical (4) Pure hypercholesterolemia: Code(s): E78.00 - Pure hypercholesterolemia, unspecified Category: Medical (5) Obesity, Class II, BMI 35-39.9: Code(s): E66.812 - Obesity, class 2 Category: Medical (6) Mild cognitive impairment: Code(s): G31.84 - Mild cognitive impairment of uncertain or unknown etiology Category: Medical Plan The management plan includes continuing metformin for diabetes mellitus type 2, with a need to confirm the dosage. Simvastatin will be continued for hypercholesterolemia management. Levothyroxine will be maintained for hypothyroidism, and the patient should continue atenolol and spironolactone for hypertension control. A bone density screening will be ordered to assess osteoporosis risk. The patient is advised to engage in dietary modifications and regular exercise to address obesity. Vitamin and hemoglobin levels will be checked to evaluate her cognitive concerns. Calcium with vitamin D supplementation will be sent to the pharmacy to support bone health. Patient was informed and verbally consented to the use of an ambient scribe for clinic note documentation during this visit. Orders: Orders Complete Blood Count Auto Diff Today G31.84 - Mild cognitive impairment of uncertain or unknown etiology Lipid Panel Today E78.5 - Hyperlipidemia, unspecified Microalbumin, Random (w Creat) Today R80.9 - Proteinuria, unspecified Comprehensive [place]. Panel Fast Today E78.00 - Pure hypercholesterolemia, unspecified Thyroid Stimulating Hormone Today E03.9 - Hypothyroidism, unspecified Vitamin B12 and Folate Today G31.84 - Mild cognitive impairment of uncertain or unknown etiology XR DEXA axial skeleton Today Z78.0 - Asymptomatic menopausal state AMB Hemoglobin A1c Today E11.9 - Type 2 diabetes mellitus without complications Medications: New calcium carbonate-vitamin D3 250 mg-3.125 mcg (125 unit) (Oyster Shell Calcium- Vitamin D3) 1 tab PO BID 180 tabs 3RF 90 days metformin 1,000 mg PO BID 180 tabs 3RF 90 days E11.9 - Type 2 diabetes mellitus without complications
[2025-01-30 09:15] VITALS: BP 112/62; PULSE 55; O2SAT 96; BMI 35.2
--- OUTSIDE RECORDS SUMMARY | 2025-01-30 09:25 | XMS_ITS | Referral Summary ---
Author Organization [facility] Address [address] [place] [address] Care Team Providers Care Energy Economist Name Role Phone Jeb Devlin Primary Care Provider [phone] Allergies Active Allergy Reactions Criticality Noted Date [...] (03/21/2022): Added automatically from request for surgery [id number] Arthritis of right knee 10/06/2021 Pathological fracture of left scapula with delay ed healing 09/28/2021 Primary osteoarthritis of left knee 08/15/2019 Intraductal papilloma of left breast 03/08/2018 Overview (03/08/2018): Added automatically from request for surgery [id number] Assessment & Plan (04/16/2018 3:01 PM EDT): [...] on file Medical Devices Implanted Type Area Manager Athletics Device Identifier Shelf Expiration Date Model / Serial / Lot Cement Tobramycin Impreganated Simplex P - [id number] Implanted:Qty: 2 on 08/15/2019 by Jose Luis Kim MD at [facility] Implant Left: Knee DU 12/23/2020 6197-9-00 1 / / [id number] Base Tibial Fixed Bearing Cemented Size 5 Attune - [id number] Implanted:Qty: 1 on 08/15/2019 by Jose Luis Kim MD at [facility] Implant Left: Knee DEPUY 05/25/2029 1506-70-0 05 / [id number] Patella Medialized Dome Cemented Aox Single Use Latex Free 32mm Attune - [id number] Implanted:Qty: 1 on 08/15/2019 by Jose Luis Kim MD at [facility] Implant Left: Knee DEPUY 03/25/2024 1518-20-0 32 / / [id number] Component Femoral Posterior Stabilized Cemented Narrow Left Sterile Latex Free Size 6n Attune - [id number] Implanted:Qty: 1 on 08/15/2019 by Jose Luis Kim MD at [facility] Implant Left: Knee DEPUY 04/25/2029 1504-10-1 26 / / [id number] Insert Tibial Fiexd Bearing Posterior Stabilizing Sterile Latex Free Size 6 5mm Attune - [id number] Implanted:Qty: 1 on 08/15/2019 by Jose Luis Kim MD at [facility] Implant Left: Knee DEPUY 02/24/2024 1516-40-6 05 / / [id number] Insert Tibial Fixed Bearing Posterior Stabilized Size 5 6mm Attune - [id number] Implanted:Qty: 1 on 10/06/2021 by Jose Luis Kim MD at [facility] Implant Right: Knee DEPUY 09/24/2023 1516-40-5 06 / / [id number] Cement Tobramycin Impreganated Simplex P - [id number] Implanted:Qty: 2 on 10/06/2021 by Jose Luis Kim MD at [facility] Implant Right: Knee DU 12/23/2022 6197-9-00 1 / / [id number] Base Tibial Fixed Bearing Cemented Size 5 Attune - [id number] Implanted:Qty: 1 on 10/06/2021 by Jose Luis Kim MD at [facility] Implant Right: Knee DEPUY 04/25/2031 1506-70-0 05 / / [id number] Patella Medialized Dome Cemented Aox Single Use Latex Free 32mm Attune - [id number] Implanted:Qty: 1 on 10/06/2021 by Jose Luis Kim MD at [facility] Implant Right: Knee DEPUY 08/23/2025 1518-20-0 32 / / [id number] Component Femoral Posterior Stabilized Cemented Right Sterile Latex Free Size 5 Attune - [id number] Implanted:Qty: 1 on 10/06/2021 by Jose Luis Kim MD at [facility] Implant Right: Knee DEPUY 08/23/2030 1504-10-2 05 / / [id number] Screw Cannulated Self-Tapping Self-Drilling Partial Threaded Stainless Steel 4.9uwf01zf - [id number] Implanted:Qty: 1 on 10/06/2021 by Jose Luis Kim MD at [facility] Screw Right: Knee DEPUY [employer] 214.568 / / Screw Cannulated Self-Tapping Self-Drilling Partial Threaded Stainless Steel 4.1bsh71wr - [id number] Implanted:Qty: 1 on 10/06/2021 by Jose Luis Kim MD at [facility] Screw Right: Knee DEPUY [employer] 214.572 / / Screw Cannulated Self-Tapping Self-Drilling Partial Threaded Stainless Steel 4.8uhp26rh - [id number] Implanted:Qty: 1 on 10/06/2021 by Jose Luis Kim MD at [facility] Screw Right: Knee [email or web address] SALES 214.554 / / Procedures * Due to [place] state law, this organization might not be [...] to Health Maintenance Results * Due to [place] state law, this organization might not be [...] PM EDT Gabbie Miles Exam Date: 10/14/[address] [address] ROBIN Left Stereotactic Breast Biopsy ROBIN Left [...] patient's Left breast was imaged with the [employer] digital mammography unit, and the following findings [...] obtain the completed interpretation. Adriana Parham MD [facility] PROCEDURES Edited Result - Final * (ABNORMAL) Basic Metabolic Panel (2021 3:59 AM EDT) NA 134(L) 135 - 145 mmol/L 2021 4:55 AM EDT [facility] K 4.6 3.5 - 5.3 mmol/L 2021 4:55 AM EDT [facility] Cl 105 97 - 110 mmol/L 2021 4:55 AM EDT [facility] CO2 25 24 - 32 mmol/L 2021 4:55 AM EDT [facility] BUN 13 7 - 23 mg/dL 2021 4:55 AM EDT [facility] Creatinine 0.70 0.50 - 1.20 mg/dL 2021 4:55 AM EDT [facility] Glucose 156(H) 70 - 99 mg/dL 2021 4:55 AM EDT [facility] Calcium 7.8(L) 8.7 - 10.7 mg/dL 2021 4:55 AM EDT [facility] Anion Gap 4(L) 5 - 15 2021 4:55 AM EDT [facility] eGFR 90 >=90 mL/min/1. 73m2 2021 4:55 AM T [facility] Comment: Estimated Glomerular Filtration [...] MD LAB BLOOD ORDERABLES Final Res ult [facility] [address] [place] [address], * (ABNORMAL) Hemoglobin A1c (09/21/2021 1:25 PM EDT) Hemoglobin A1C 6.2(H) <5.7 % of total Hgb 09/22/2021 4:39 AM EDT [facility] Comment: For someone without known diabetes, a [...] (MG/DL) 131 mg/dL 09/22/2021 4:39 AM EDT [facility] eAG (MMOL/L) 7.3 mmol/L 09/22/2021 4:39 AM EDT [facility] Blood Structure of peripheral vein / Unknown Venipuncture / Unknown 09/21/2021 1:25 PM EDT 09/21/2021 3:16 PM EDT Narrative [facility] - 09/22/2021 4:39 AM EDT [facility] Received Date: Vaibhav Carmona MD LAB BLOOD ORDERABLES Final Result [facility] [address] [facility] [address], [place] [address], [place] [phone] [employer] [facility] [address] [facility] [address], [place] [address], [place] [phone] * Eye Exam, Diabetic (09/04/2018) us Unknown Provider HEALTH MAINTENANCE Final Res ult * Microalbumin/Creatinine Urine, Random (11/18/2016 8:44 AM EDT) Creatinine, Random Urine 189 20 - 320 mg/dL [facility] Microalbumin 1.2 mg/dL [facility] [employer] Comment: Reference Range Not established Microalbumin/Crea tinine Ratio, Random Urine 6 <30 mcg/mg creat [employer] [facility] Comment: . The ADA defines abnormalities in [...] AM EDT 11/18/2016 5:16 PM EDT Narrative [employer] [facility] - 11/19/2016 9:00 AM EDT Report Comments: Received Date: 20161118 us Stewart Nazario MD LAB URINE ORDERABLES Fin al Result [employer] [address], [facility] [place] [address], * COLONOSCOPY (04/05/2016 7:44 AM EDT) Narrative [...] Most Recently Relevant to Health Maintenance Insurance [facility] Advance Directives Documents on File Type Date Recorded Patient President [employer] Expl anation Health Care Proxy 10/06/2021 10:11 AM Health Care Proxy 01/12/2021 Health Care Proxy 08/05/2019 8:57 AM Advance Directive 01/22/2016 12:00 AM Adva nce Care Directives Health Care Proxy 01/17/2016 12:00 AM [facility] Care Proxy Advance Directive 08/18/2014 12:00 AM [...] 6:44 AM 04/06/2018 4:39 PM Care Teams Energy Economist Relationship Specialty Start Date End Date Jeb Devlin NPNa: [id number] [address] [place] [address] PCP - General Internal Medicine 02/27/19
== END 2025-01-30 09:48 | disposition home or self-care (01) ==
PROVIDERS: PCP Internal Medicine; Visit Provider Internal Medicine
DX: E11.65 Type 2 diabetes mellitus with hyperglycemia (principal); I10 Essential (primary) hypertension; E03.9 Hypothyroidism, unspecified; E78.00 Pure hypercholesterolemia, unspecified; E66.812 Obesity, class 2; G31.84 Mild cognitive impairment of uncertain or unknown etiology; E11.9 Type 2 diabetes mellitus without complications

== ENCOUNTER → 2025-01-30 09:02 | Outpatient (BNVA) | payer MEDICARE, SELFPAY | PROVIDERS: Visit Provider Internal Medicine | DX: E11.9 Type 2 diabetes mellitus without complications (principal); E78.00 Pure hypercholesterolemia, unspecified; E03.9 Hypothyroidism, unspecified; I10 Essential (primary) hypertension; G31.84 Mild cognitive impairment of uncertain or unknown etiology; E66.812 Obesity, class 2; E78.5 Hyperlipidemia, unspecified; R80.9 Proteinuria, unspecified; Z68.35 Body mass index [BMI] 35.0-35.9, adult; Z78.0 Asymptomatic menopausal state; Z79.84 Long term (current) use of oral hypoglycemic drugs | CPT/HCPCS: 83036; 96127; 99202 ==

== ENCOUNTER 2025-03-11 10:11 | Outpatient (REF) | payer MEDICARE, SELFPAY ==
--- NOTE | ~2025-03-11 | MM_ITS ---
EXAMINATION: DXA BONE DENSITY AXIAL HISTORY: Z78.0 - Asymptomatic menopausal state TECHNIQUE: Impactia Dual energy absorptiometry (DEXA) of the lumbar spine and distal forearm was performed. The patient is status post bilateral total hip arthroplasty. COMPARISON: There are no prior studies for comparison. FINDINGS: The bone mineral density of the lumbar spine is 1.602 g/cm2, corresponding to a T-score of 3.6, and a Z-score of 5.0. This is indicative of normal bone mineral density. The bone mineral density of the distal forearm is 0.963 g/cm2, corresponding to a T-score of 0.9, and a Z-score of 3.5. This is indicative of normal bone mineral density. MM/XR DEXA axial skeleton IMPRESSION: Based on bone mineral density, and according to World Health Organization (WHO) criteria, the diagnosis is consistent with normal bone mineral density. Statistically, 68% of repeat scans fall within 1 SD (+/- 0.010 g/cm2 for AP spine L1-L4) and 1 SD (+/- 0.012 g/cm2 for femur total) FRAX is a trademark of the [employer] [facility] [employer] [facility], a World Health Organization (WHO) Collaborating Center. Electronically signed by: Jose Abad MD 03/11/2025 11:06 AM EDT
--- OUTSIDE RECORDS SUMMARY | 2025-03-11 13:18 | XMS_ITS | Clinical Summary ---
Author Organization [facility] Address [address] [place] [address] Care Team Providers Care Assessment Director Name Role Phone Jeb Devlin Primary Care Provider Allergies Active Allergy Reactions Criticality Noted Date [...] (03/21/2022): Added automatically from request for surgery [id number] Arthritis of right knee 10/06/2021 Pathological fracture of left scapula with delay ed healing 09/28/2021 Primary osteoarthritis of left knee 08/15/2019 Intraductal papilloma of left breast 03/08/2018 Overview (03/08/2018): Added automatically from request for surgery [id number] Assessment & Plan (04/16/2018 3:01 PM EDT): [...] and 2 Lf of Diphtheria Toxoid) 05/08/2008 Family History Medical History Relation Name Comments Colon cancer Brother 1 Coronary artery disease Brother 1 Diabetes Brother 2 Peripheral vascular disease Brother 2 Seizures Brother 2 Heart disease Brother 3 No Known Problems Daughter Aneurysm Father Colon cancer Father Myocardial Infarction Father Stroke Mother Relation Name Status Comments Brother 1 Brother 2 Alive Brother 3 Alive Daughter Alive Father Mother Social History Tobacco Use Types Packs/Day Years [...] 10/14/2024 9:57 AM EDT Plan of Treatment Health Maintenance Due Date Last Done Comments Hepatitis C Screening 1945 Osteoporosis Screening 10/08/1995 Zoster Vaccines (1 of 2) 10/08/1995 DTaP,Tdap,and Td Vaccines (1 - Tdap) 05/09/2008 05/08/2008 Urine Microalbumin 11/18/2017 11/18/2016, 0 11/18/2016, 11/18/2016, Additional history exists Colonoscopy 04/05/2019 04/05/2016, 03/26, 12/08/2015, Additional history exists Ophthalmology Exam 09/05/2019 09/04/2018, 07/19/2017 RSV Vaccine (60+ years old and patients) (1 - 1-dose 75+ series) 2020 Pneumococcal Vaccine: 50+ Years (3 of 3 - PCV20 or PCV21) 11/14/2021 11/14/2016, 03/24/2008 Hemoglobin A1C 03/24/2022 09/21/2021, 02/12/2019, 06/07/2017, Additional history exists Alcohol/Substance Use Screening 06/26/2024 Depression Screening and Follow-Up 06/26/2024 Health Care Proxy Review 06/26/2024 Social Drivers of Health Annual Screening 06/26/2024 COVID-19 Vaccine ( season) 2025 04/22/2021 Influenza Vaccine (#1) 2025 , 02/24/2021, 04/01/2016, Additional history exists Basic Metabolic Panel 07/25/2025 07/25/2024 , 07/24/2024, 07/23/2024, Additional history exists Mammogram Discontinued 10/14/2024, 09/25, 10/14/2024, Additional history exists Hepatitis B Vaccines Aged Out No long er eligible based on patient's age to complete this topic Medical Devices Implanted Type Area Renderer Device Identifier Shelf Expiration Date Model / Serial / Lot Cement Tobramycin Impreganated Simplex P - [id number] Implanted:Qty: 2 on 08/15/2019 by Jose Luis Kim MD at [facility] Implant Left: Knee DU 12/23/2020 6197-9-00 1 / / [id number] Base Tibial Fixed Bearing Cemented Size 5 Attune - [id number] Implanted:Qty: 1 on 08/15/2019 by Jose Luis Kim MD at [facility] Implant Left: Knee DEPUY 05/25/2029 1506-70-0 05 [id number] Patella Medialized Dome Cemented Aox Single Use Latex Free 32mm Attune - [id number] Implanted:Qty: 1 on 08/15/2019 by Jose Luis Kim MD at [facility] Implant Left: Knee DEPUY 03/25/2024 1518-20-0 32 / / [id number] Component Femoral Posterior Stabilized Cemented Narrow Left Sterile Latex Free Size 6n Attune - [id number] Implanted:Qty: 1 on 08/15/2019 by Jose Luis Kim MD at [facility] Implant Left: Knee DEPUY 04/25/2029 1504-10-1 / / [id number] Insert Tibial Fiexd Bearing Posterior Stabilizing Sterile Latex Free Size 6 5mm Attune - [id number] Implanted:Qty: 1 on 08/15/2019 by Jose Luis Kim MD at [facility] Implant Left: Knee DEPUY 02/24/2024 1516-40-6 05 / / [id number] Insert Tibial Fixed Bearing Posterior Stabilized Size 5 6mm Attune - [id number] Implanted:Qty: 1 on 10/06/2021 by Jose Luis Kim MD at [facility] Implant Right: Knee DEPUY 09/24/2023 1516-40-5 06 / / [id number] Cement Tobramycin Impreganated Simplex P - [id number] Implanted:Qty: 2 on 10/06/2021 by Jose Luis Kim MD at [facility] Implant Right: Knee DU 12/23/2022 6197-9-00 1 / / [id number] Base Tibial Fixed Bearing Cemented Size 5 Attune - [id number] Implanted:Qty: 1 on 10/06/2021 by Jose Luis Kim MD at [facility] Implant Right: Knee DEPUY 04/25/2031 1506-70-0 05 / / [id number] Patella Medialized Dome Cemented Aox Single Use Latex Free 32mm Attune - [id number] Implanted:Qty: 1 on 10/06/2021 by Jose Luis Kim MD at [facility] Implant Right: Knee DEPUY 08/23/2025 1518-20-0 32 / / [id number] Component Femoral Posterior Stabilized Cemented Right Sterile Latex Free Size 5 Attune - [id number] Implanted:Qty: 1 on 10/06/2021 by Jose Luis Kim MD at [facility] Implant Right: Knee DEPUY 08/23/2030 1504-10-2 05 / / [id number] Screw Cannulated Self-Tapping Self-Drilling Partial Threaded Stainless Steel 4.9dae79xq - [id number] Implanted:Qty: 1 on 10/06/2021 by Jose Luis Kim MD at [facility] Screw Right: Knee DEPUY [employer] 214.568 / / Screw Cannulated Self-Tapping Self-Drilling Partial Threaded Stainless Steel 4.0oog24fq - [id number] Implanted:Qty: 1 on 10/06/2021 by Jose Luis Kim MD at [facility] Screw Right: Knee DEPUY [employer] 214.572 / / Screw Cannulated Self-Tapping Self-Drilling Partial Threaded Stainless Steel 4.5sfx82au - [id number] Implanted:Qty: 1 on 10/06/2021 by Jose Luis Kim MD at [facility] Screw Right: Knee [employer] SAL[employer] 214.554 / / Procedures * Due to [place] state law, this organization might not be [...] to Health Maintenance Results * Due to [place] state law, this organization might not be [...] PM EDT Gabbie Miles Exam Date: 10/14/[address] [address] ROBIN Left Stereotactic Breast Biopsy ROBIN Left [...] patient's Left breast was imaged with the [employer] digital mammography unit, and the following findings [...] obtain the completed interpretation. Adriana Parham MD [facility] PROCEDURES Edited Result - Final * (ABNORMAL) Basic Metabolic Panel (2021 3:59 AM EDT) NA 134(L) 135 - 145 mmol/L 2021 4:55 AM EDT [facility] K 4.6 3.5 - 5.3 mmol/L 2021 4:55 AM EDT [facility] Cl 105 97 - 110 mmol/L 2021 4:55 AM EDT [facility] CO2 25 24 - 32 mmol/L 2021 4:55 AM EDT [facility] BUN 13 7 - 23 mg/dL 2021 4:55 AM EDT [facility] Creatinine 0.70 0.50 - 1.20 mg/dL 2021 4:55 AM EDT [facility] Glucose 156(H) 70 - 99 mg/dL 2021 4:55 AM EDT [facility] Calcium 7.8(L) 8.7 - 10.7 mg/dL 2021 4:55 AM EDT [facility] Anion Gap 4(L) 5 - 15 2021 4:55 AM EDT [facility] eGFR 90 >=90 mL/min/1. 73m2 2021 4:55 AM EDT [facility] Comment: Estimated Glomerular [...] MD LAB BLOOD ORDERABLES Final Res ult [facility] [address] [place] [address], [place] * (ABNORMAL) Hemoglobin A1c (09/21/2021 1:25 PM EDT) Hemoglobin A1C 6.2(H) <5.7 % of total Hgb 09/22/2021 4:39 AM EDT [facility] Comment: For someone without known diabetes, a [...] (MG/DL) 131 mg/dL 09/22/2021 4:39 AM EDT [facility] eAG (MMOL/L) 7.3 mmol/L 09/22/2021 4:39 AM EDT [facility] Blood Structure of peripheral vein / Unknown Venipuncture / Unknown 09/21/2021 1:25 PM EDT 09/21/2021 3:16 PM EDT Narrative [facility] - 09/22/2021 4:39 AM EDT [facility] Received Date: Vaibhav Carmona MD LAB BLOOD ORDERABLES Final Result [facility] [address] [facility] [address], [place] [address], [place] [employer] [facility] [address] [facility] [address], [place] [address], [place] [phone] * Eye Exam, Diabetic (09/04/2018) us Unknown Provider HEALTH MAINTENANCE Final Res ult * Microalbumin/Creatinine Urine, Random (11/18/2016 8:44 AM EDT) Creatinine, Random Urine 189 20 - 320 mg/dL [facility] Microalbumin 1.2 mg/dL [facility] [employer] Comment: Reference Range Not established Microalbumin/Crea tinine Ratio, Random Urine 6 <30 mcg/mg creat [facility] Comment: . The ADA defines abnormalities in albumin excretion as follows: . Category Result (mcg/mg creatinine) . Normal <30 Microalbuminuria 30-299 Clinical albuminuria > OR = 300 . The ADA recommends that at least two of three specimens collected within a 3-6 month period be abnormal before considering a patient to be within a diagnostic category. 11/18/2016 8:4 4 AM EDT 11/18/2016 5:16 PM EDT Narrative [employer] [facility] - 11/19/2016 9:00 AM EDT Report Comments: Received Date: 20161118 us Stewart Nazario MD LAB URINE ORDERABLES Fin al Result [facility] [address], [facility] [place] [address], * COLONOSCOPY (04/05/2016 7:44 AM EDT) Narrative [...] 0 Note Initiated On: 04/05/2016 7:44 AM us Eldon Stringre MD PROVATION PROCEDURES Final Resu lt from Last 3 Months or Most Recently Relevant to Health Maintenance Insurance [facility] Advance Directives Documents on File Type Date Recorded Patient Education Program Associate Expl anation Health Care Proxy 10/06/2021 10:11 AM Health Care Proxy 01/12/2021 Health Care Proxy 08/05/2019 8:57 AM Advance Directive 01/22/2016 12:00 AM Adva nce Care Directives Health Care Proxy 01/17/2016 12:00 AM [facility] Care Proxy Advance Directive 08/18/2014 12:00 AM angeline clark Dec Making (Adv.Dir) Advance Directive 08/17/2014 12:00 [...] 6:44 AM 04/06/2018 4:39 PM Care Teams Assessment Director Relationship Specialty Start Date End Date Jeb Devlin [address] [place] [address] PCP - General Internal Medicine 02/27/19
--- OUTSIDE RECORDS SUMMARY | 2025-03-11 13:18 | XMS_ITS | Encounter Summary ---
Author Organization [facility] Address [address] [facility] [address] [place] [address] Phone Care Team Providers Care Publication Manager Name Role Phone Jeb Devlin MD Primary Care Provider [phone] Encounter Details Date Type Department Care Team ([facility] st Contact Info) Description 07/23/2024 Procedure [facility], Ct Scan - [address] [address] Social History Tobacco Use Types Packs/Day Years [...] 07/23/2024 3:51 PM Gilda Liao, DELANEY * [place] Suicide Severity Rating Scale (Screener/Recent Self-Report) Question Answer Date of Assessment Author 1. Wish to be (Past 1 Month) No 025 3:51 PM Gilda Liao, DELANEY 2. Non-Specific Active Suici ethan Thoughts (Past 1 Month) No 07/23/2024 3:51 PM Gilda Liao, DELANEY 6. Suicidal Behavior (Lifetime) No 3:51 [...] documented as of this encounter Care Teams Publication Manager Relationship Specialty Start Date End Date Jeb Devlin MD [address] [address] PCP - General Internal Medicine 09/29/22 documented as of this encounter Additional Source Comments The information contained in this document represents components of the legal health record. It is not the complete legal health record.[facility]
--- OUTSIDE RECORDS SUMMARY | 2025-03-11 13:19 | XMS_ITS | Encounter Summary ---
Author Organization [facility] Address [address] [place] [address] Care Team Providers Care Lead Laying And Gluing Machine Operator Name Role Phone Jeb Devlin Primary Care Provider [phone] Encounter Details Date Type Department Care Team (Late st Contact Info) Description 12/01/2021 [employer] Message [facility] Xray [address] [place] [address] [employer], [employer] Provider [address] [place] [id number] Your Recent Radiology Visit Social History Tobacco Use Types Packs/Day Years Used Date Smoking Tobacco: Never Smokeless Tobacco: Never Comments:: Alcohol Use Standard Drinks/Week Comments Yes 3 (1 standard drink = 0.6 oz pur e alcohol) Comments No Sex and Gender Information Value Date Recorded Sex Assigned at Female 01/23/2021 11:59 AM EDT Legal Sex Female 11:59 PM EDT Gender Identity Female 11/27/2019 10:38 AM EDT Sexual Orientation Straight 11/27/2019 10 :38 AM EDT documented as of this encounter Plan of Treatment Not on file documented as of this encounter Visit Diagnoses Not on filedocumented in this encounter Care Teams Lead Laying And Gluing Machine Operator Relationship Specialty Start Date End Date Jeb Devlin [address] [place] [address] PCP - General Internal Medicine 02/27/19 documented as of this encounter
--- OUTSIDE RECORDS SUMMARY | 2025-03-11 13:19 | XMS_ITS | Encounter Summary ---
Author Organization [facility] Address [address] [place] [address] Phone Care Team Providers Care Gold Letterer Name Role Phone Unknown, Unknown Primary Care Provider Jeb Cantu MD Primary Care Provider [phone] Encounter Details Date Type Department Care Team (Late st Contact Info) Description 08/05/2022 Transcribe Orders [facility] [address] [place] [address] Nida Purcell MD [address] [place] [address] Social History Tobacco Use Types Packs/Day Years Used Date Smoking Tobacco: Never Assessed Comments Unknown Sex and Gender Information Value Date Recorded Sex Assigned at Female 07/23/2024 3:51 PM EST Legal Sex Female 10:08 PM EDT Gender Identity Female 07/23/2024 3:51 PM EST Sexual Orientation Straight 07/24/2024 9: 38 AM EST documented as of this encounter Plan of Treatment Not on file documented as of this encounter Visit Diagnoses Not on filedocumented in this encounter Additional Health Concerns Infection Onset Date Last Indicated Resolved Time CoV-Risk 07/23/2024 07/23/2024 08/03/2024 1:22 AM EST Influenza A 07/23/2024 07/23/2024 07/30/2024 1:23 AM EST documented as of this encounter Care Teams Gold Letterer Relationship Specialty Start Date End Date Unknown, Unknown, PCP - General 08/09/22 09/28/22 Jeb Devlin MD [address] [place] [address] PCP - General Internal Medicine 09/29/22 documented as of this encounter Additional Source Comments The information contained in this document represents components of the legal health record. It is not the complete legal health record.[facility]
--- OUTSIDE RECORDS SUMMARY | 2025-03-11 13:19 | XMS_ITS | Clinical Summary ---
Author Organization [facility] Address [address] [address] Phone Care Team Providers Care [employer] Name Role Phone Jeb Devlin MD Primary Care Provider [phone] Allergies Active Allergy Reactions Criticality Noted Date Comments Penicillins Rash Medium 07/23/2024 Sulfa (Sulfonamide Antibiotics) Rash,Hives High 06/27 Tetracyclines Hives High 12/07/2016 Medications aspirin 81 MG EC tablet Take 81 mg by mouth daily. Active calcium carbonate-vitami n D3 625 mg (250 elemental)-125 units Tab Take 1 tablet by mouth daily. Active escitalopram oxalate (LEXAPRO) 10 MG tablet Take 10 mg by mouth daily. 07/13/2024 Active metFORMIN (GLUCOPHAGE) 1000 MG tablet Take 1,000 mg by mouth 2 (two) times a day with meals. 07/22/2024 Active nystatin (NYSTOP) powder Apply topically. 07/09/2024 Active simvastatin (ZOCOR) 40 MG tablet Take 40 mg by mouth daily. 06/27/2024 Active torsemide (DEMADEX) 20 MG tablet Take 20 mg by mouth daily. 07/01/2024 Active levothyroxine (SYNTHROID, LEVOTHROID) 88 MCG tablet Take 88 mcg by mouth every morning. Active atenolol (TENORMIN) 25 MG tablet Take 12.5 mg by mouth daily. Active Active Problems Problem Noted Date Diagnosed Date Influenza 07/23/2024 Assessment & Plan (07/24/2024 11:17 AM EST): Symptomatic since couple days prior, with cough, poor p.o. intake, lack of appetite. Overall worsening fatigue, and concern for altered mental status. CXR unremarkable, no increased oxygen demands Continue Tamiflu , renally adjust dose to Tamiflu 30 mg twice daily Continue close clinical monitoring Encourage p.o. hydration Assessment & Plan (07/23/2024 10:04 PM EST): Symptomatic since couple days prior, with cough, poor p.o. intake, lack of appetite. Overall worsening fatigue, and concern for altered mental status. CXR unremarkable, no increased oxygen demands Plan: Start Tamiflu 75 mg, renally adjust dose to Tamiflu 30 mg twice daily Continue close clinical monitoring Encourage p.o. hydration Acute metabolic encephalopathy 07/23/2024 Assessment & Plan (07/24/2024 11:17 AM EST): Likely secondary from influenza A Per patient and she is forgetful more than usual, has had some mild confusion of the time and date last night. She is currently alert and oriented x 3, has difficulty remembering her own birthday which according to the patient's is new as well. Patient has prior history of CVA, states that she has difficulty remembering words and/or memories at times which is not new for her CT scan of the head was unremarkable, patient is asymptomatic for a UTI at this time Will f/u TSH w/reflex Further treatment as above for influenza A Encourage p.o. hydration Tylenol as needed for fever PT/OT consultation Delirium precautions Assessment & Plan (07/23/2024 10:04 PM EST): -Likely secondary from influenza A -Per patient and she is forgetful more than usual, has had some mild confusion of the time and date last night. She is currently alert and oriented x 3, has difficulty remembering her own birthday which according to the patient's is new as well. -Patient has prior history of CVA, states that she has difficulty remembering words and/or memories at times which is not new for her -CT scan of the head was unremarkable, patient is asymptomatic for a UTI at this time Plan: Check TSH w/reflex Further treatment as above for influenza A Encourage p.o. hydration Tylenol as needed for fever PT/OT consultation Delirium precautions Overactive bladder 09/22/2022 Type 2 diabetes mellitus without complication Assessment & Plan (07/24/2024 11:17 AM EST): Hold metformin in the setting of admission, initiate Lantus 10 units at bedtime, and bolus insulin 2 units TID + correctional insulin. Assessment & Plan (07/23/2024 10:04 PM EST): Hold metformin in the setting of admission, initiate Lantus 10 units at bedtime, and bolus insulin 2 units TID + correctional insulin. Hypothyroidism 03/01/2009 Assessment & Plan (07/24/2024 11:17 AM EST): Continue levothyroxine Assessment & Plan (07/23/2024 10:04 PM EST): Continue levothyroxine Hypertension 03/01/2009 Assessment & Plan (07/24/2024 11:17 AM EST): Continue atenolol Assessment & Plan (07/23/2024 10:04 PM EST): Continue atenolol Hypercholesterolemia 03/01/2009 Assessment & Plan (07/24/2024 11:17 AM EST): Continue statin Assessment & Plan (07/23/2024 10:04 PM EST): Continue statin Social History Tobacco Use Types Packs/Day Years Used Date Smoking Tobacco: Never Smokeless Tobacco: Never Tobacco Cessation:Counseling Given: Not Answered Alcohol Use Standard Drinks/Week Comments Not Currently [...] your housing situation today? I have paulo levin 07/24/2024 How many times have you move [...] tries to control you? No 07/23/2024 Comments No Sex and Gender Information Value Date Recorded Sex Assigned at Female 07/23/2024 3:51 PM EST Legal Sex Female 10:08 PM EDT Gender Identity Female 07/23/2024 3:51 PM EST Sexual Orientation Straight 07/24/2024 9: 38 AM EST Last Filed Vital Signs Vital Sign Reading Time Taken Comments Blood Pressure 150/80 08/30/2024 1:14 PM EST Pulse 58 08/30/2024 1:14 PM EST Temperature 36.7 C (98.1 F) 08/30/2024 1:14 PM EST Respiratory Rate 16 08/30/2024 1:14 PM EST Oxygen Saturation 96% 08/30/2024 1:14 PM EST Inhaled Oxygen Concentration - - Weight 82 kg (180 lb 12.8 oz) 07/24/2024 5:00 PM EST Height 152.4 cm (5') 07/23/2024 8:12 PM EST Body Mass Index 35.31 07/23/2024 8:12 PM EST Plan of Treatment Health Maintenance Due Date Last Done Comments Adult Td,Tdap Booster 1945 DEPRESSION SCREENING 1957 HEPATITIS C SCREENING 10/08/1963 PNEUMOCOCCAL VACCINES (50+ years) (1 of 2 - PCV) 1964 ZOSTER VACCINES (1 of 2) 10/08/1995 OSTEOPOROSIS SCREENING INITI AL (ONE-TIME) 2010 RSV VACCINE (1 - 1-dose 75+ series) 2020 HEMOGLOBIN A1C 03/24/2022 09/21/2021, 09/21/2021, 08/02/2019 DIABETIC EYE EXAM 07/23/2024 URINE MICROALBUMIN/CREATININ E RATIO 07/23/2024 11/18/2016 INFLUENZA VACCINE (#1) 2025 COVID-19 VACCINE ( - 2023-2 5 season) 2025 BLOOD PRESSURE 03/02/2025 08/30/2024 TSH LEVEL 07/24/2025 07/24/2024 CREATININE LEVEL 07/25/2025 07/25/2024, 07/24/2024, 07/23/2024 SMOKING STATUS SCREENING (On ce After 26 Yrs) Completed 08/30/2024 HEPATITIS A VACCINES Aged Out No long er eligible based on patient's age to complete this topic HIB VACCINES Aged Out No longer eligi ble based on patient's age to complete this topic MENINGOCOCCAL VACCINES (ACWY) Aged Out No longer eligible based on patient's age to complete this topic MENINGOCOCCAL VACCINES (B) Aged Out N o longer eligible based on patient's age to complete this topic Medical Devices Not on file Procedures Procedure Name Priority Date/Time Associated Diagnosis Comments BASIC METABOLIC PANEL Routine 07/25/2024 5:40 AM EST TSH WITH REFLEX Routine 07/24/2024 4:17 AM EST from Last 3 Months or Most Recently Relevant to Health Maintenance Results * (ABNORMAL) Basic metabolic panel (07/25/2024 5:40 AM EST) SODIUM 137 133 - 146 mmol/L [facility] CHLORIDE 98 96 - 108 mmol/L [facility] POTASSIUM 3.9 3.3 - 5.1 mmol/L [facility] CO2 24 21 - 35 mmol/L [facility] BUN 9 6 - 19 mg/dL [facility] CREATININE 0.80 0.5 - 1.5 mg/dL [facility] GLUCOSE 151(H) 70 - 99 mg/dL [facility] CALCIUM 8.5 8.4 - 10.3 mg/dL [facility] EGFR 75 >59 mL/min/1.7 3m2 [facility] Comment:Estimated glomerular filtration rate calculated using the CKD-EPI refit equation. ANION GAP 19 10 - 20 mmol/L [facility] Blood 07/25/2024 5:40 AM EST 07/25/2024 5:56 AM EST us Luisa Oropeza MD LAB BLOOD ORDERABLES Final Resul t [address] [address] * TSH with reflex (07/24/2024 4:17 AM EST) TSH 0.74 0.27 - 4.20 uIU/mL [facility] 07/24/2024 4:17 AM EST 07/24/2024 4:51 AM EST us Shankar Aguiar DO LAB BLOOD ORDERABLES Final Res ult [address] [address] from Last 3 Months or Most Recently Relevant to Health Maintenance Insurance [employer] POS PPO REPLACEMENT MEDICARE POS [place] [address] [place] [address] MEDICARE POS PPO REPLACEMENT [employer] POS PPO REPLACEMENT [employer] POS PPO REPLACEMENT MEDICARE POS PPO REPLACEMENT Advance Directives For more information, please contact: [phone] (9AM - 5PM [facility], Monday-Monday) Documents on File Type Date Recorded 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 It is not the complete legal health record.[facility]
== END 2025-03-11 10:12 | disposition home or self-care (01) ==
LOC: HO.MAMMO 10:11
PROVIDERS: PCP Internal Medicine; Visit Provider Internal Medicine
DX: Z13.820 Encounter for screening for osteoporosis (principal); Z78.0 Asymptomatic menopausal state
CPT/HCPCS: 77080

== ENCOUNTER → 2025-03-11 10:30 | Outpatient (BNV) | payer MEDICARE, SELFPAY | PROVIDERS: PCP Internal Medicine; Visit Provider Radiology Diagnostic Radiology | DX: E28.39 Other primary ovarian failure (principal) | CPT/HCPCS: 77080 ==

== ENCOUNTER 2025-04-28 10:54 | Outpatient (AMB) | payer MEDICARE, SELFPAY ==
--- NOTE | 2025-04-28 10:55 | A.OFFVIS_ITS ---
Vital Signs 04/28/25 10:56 Height 4 ft 11.65 in Weight 180 lb 2 oz BMI 35.6 BP 102/64 Blood Pressure Location Rt brachial Position Sitting Pulse 62 Pulse Source Pulse Oximeter Pulse Oximetry (%) 96 Oxygen Delivery Method Room Air Intake Visit Reasons: INP - Other amnesia Intake Note: Amnesia Commission Specialist Required: No Accompanied by: Daughter Allergies Sulfa (Sulfonamide Antibiotics) Allergy (Severe, Verified 04/28/25 10:56) Hives Medication List - Last Reconciled 04/28/25 by Yuki Lindsey MD aspirin 81 mg PO DAILY 90 days atenolol 12.5 mg PO DAILY calcium carbonate-vitamin D3 250 mg-3.125 mcg (125 unit) (Oyster Shell Calcium- Vitamin D3) 1 tab PO BID 90 days cyanocobalamin (vitamin B-12) 1,000 mcg IM QMONTH 1 month escitalopram oxalate 5 mg PO DAILY 90 days insulin syringe-needle U-100 ([employer] Syringes) Use 1 syringe once a month levothyroxine 88 mcg PO QAM lisinopril 10 mg PO DAILY 90 days metformin 1,000 mg PO BID 90 days nystatin 1 appl topical BID 30 days simvastatin 40 mg PO QPM spironolactone 50 mg PO DAILY HPI Comments Details: 79y/o Right handed female comes for evaluation of memory issues. she is accompanied by her daughter who helps with history Her family started noticing issues with memory about 6 mths ago and has progressed. she has Masters from [employer] and forgot that detail .s he forgot her husbands last name and current marital status . Her was in the hospital in [place] - but she had difficulty calling and communicating with her daughter.she independent in all her ADLS. she domingo snot us eher cell phone due to diffiuclty. she does not do her finances. No mood issues she sleeps good [facility] Surgical History History of bilateral knee replacement History of left hip replacement History of surgery History of right hip replacement History of hand surgery History of arthroscopy History of cholecystectomy History of History of tonsillectomy History of History of surgery on left wrist Family History Mother No problems noted. Father Cancer Mother Hypertension Social History Housing: House Alcohol intake: current Alcohol intake frequency: a few times a month Alcohol type: wine Patient Tobacco Use Status: Never used Tobacco e-Cigarette/Vaping Use: Never Used Second Hand Smoke Exposure: No service: No Current occupational status: unemployed and disabled Cognitive needs: No Hearing needs: No Vision needs: Yes Physical Exam Vital Signs: Last Vital Signs Pulse 62 04/28/25 10:56 BP 102/64 04/28/25 10:56 Pulse Ox 96 04/28/25 10:56 Oxygen Delivery Method Room Air 04/28/25 10:56 BMI result Body Mass Index 35.6 Const General: cooperative, healthy appearing and comfortable Nutritional Appearance: average body habitus Orientation/consciousness: patient oriented x3 Eyes Pupils: Equal, round and reactive pupils present Neuro Other: antalgic General: patient oriented x3, tone normal, moves all extremities and no focal motor deficits Cranial nerves: Yes Facial sensation intact/muscles of mastication intact, Yes Equal, round and reactive pupils present, Yes Bilaterally intact EOM present, Yes Nystagmus not present, Yes Normal facial strength present, Yes Midline tongue present, Yes Symmetric palate elevation present and Yes Ability to bilaterally elevate shoulders present Cognition (Neuro): normal cognition Gait exam (Neuro): Antalgic gait present Motor exam (neuro): 5/5 motor strength present throughout and Normal motor muscle tone present throughout Deep tendon reflexes (DTR's): Right triceps reflex intensity grade: 1+, Left t riceps reflex intensity grade: 1+, Rt Biceps (C5, C6): 1+, Left biceps reflex intensity grade: 1+, Right brachioradialis reflex intensity grade: 1+, Left brachioradialis reflex intensity grade: 1+, Right patellar reflex intensity grade: 1+ and Left patellar reflex intensity grade: 1+ Coordination: [id number] test normal Orientation What is the (year) (season) (date) (day) (month)?: year, season, date, day and month Where are we (state) (county) (town or city) (hospital) (floor)?: state, town or city, hospital/clinic and floor Registration Name of 3 unrelated objects clearly and slowly, then ask patient to repeat all 3 of them. (1st repeat determines score. Make sure they can repeat all three): object 1, object 2 and object 3 Attention & Calculation (CHOOSE ONE) Spell WORLD backwards (DLROW): 5 letters Recall Ask patient to repeat the 3 items from question #3.: object 1, object 2 and object 3 Language Show patient a wristwatch & ask what it is. Repeat for pencil.: watch and pencil Ask the patient to repeat the phrase 'No ifs, ands, or buts' after you.: correct Ask the patient to 'take a piece of paper with their right hand' 'fold paper in half' 'place paper on floor': take paper in right hand, fold paper in half and place paper on floor Print the sentence 'CLOSE YOUR EYES' on a piece. If patient actually closes eyes then score.: followed written direction Give patient a blank piece of paper & ask to write a sentence. Score if it contains a noun & verb.: sentence contains subject and verb Ask patient to copy figure of intersecting pentagons exactly. Score if all 10 angles & 2 intersects are included.: all 10 angles present & 2 are intersected Score Score: 29 Assessment & Plan Assessment & Plan (1) Mild cognitive impairment: Comment: ? vascular worsened by B 12 def Code(s): G31.84 - Mild cognitive impairment of uncertain or unknown etiology Category: Medical Plan MRI brain to evaluate Continue vit B 12 replacement APO E4 status I will trial her on donepezil 10 mg qd - and consider adding memantine Check EKG for QT prolongation Orders: Orders MR head/brain wo con Today G31.84 - Mild cognitive impairment of uncertain or unknown etiology Other Ref Test - Misc Today G31.84 - Mild cognitive impairment of uncertain or unknown etiology Medications: New donepezil 1/2 tab qd for 4 weeks then 1 tabq d 10 mg PO DAILY 30 tabs 6RF Coding Level of Care Code New Pt Level 4 (67215) Complex EM visit Add On G2211 Diagnoses Mild cognitive impairment G31.84
[2025-04-28 10:56] VITALS: BP 102/64; PULSE 62; O2SAT 96; BMI 35.6
== END 2025-04-28 11:59 | disposition home or self-care (01) ==
LOC: HO.HSMS 10:55
PROVIDERS: PCP Internal Medicine; Visit Provider Psychiatry & Neurology Neurology
DX: G31.84 Mild cognitive impairment of uncertain or unknown etiology (principal)
CPT/HCPCS: 99204; G2211

== ENCOUNTER → 2025-04-28 10:54 | Outpatient (BNVA) | payer MEDICARE, SELFPAY | PROVIDERS: PCP Internal Medicine; Visit Provider Psychiatry & Neurology Neurology | DX: G31.84 Mild cognitive impairment of uncertain or unknown etiology (principal) | CPT/HCPCS: 99202 ==

== ENCOUNTER 2025-06-04 08:37 | Outpatient (AMB) | payer OTHER, SELFPAY ==
[2025-06-04 08:46] VITALS: BP 134/76; PULSE 80; O2SAT 98; BMI 35.6
--- NOTE | 2025-06-04 08:46 | A.OFFPC_ITS ---
Vital Signs 06/04/25 08:46 Height 4 ft 11.65 in Weight 180 lb BMI 35.6 BP 134/76 Blood Pressure Location Rt brachial Position Sitting Pulse 80 Pulse Source Pulse Oximeter Pulse Oximetry (%) 98 Oxygen Delivery Method Room Air Intake Visit Reasons: Annual Exam Intake Note: Rash on legs, UTI, Diarrhea Copyright Expert Required: No Accompanied by: Self / Same As Patient Allergies Sulfa (Sulfonamide Antibiotics) Allergy (Severe, Verified 06/04/25 09:14) Hives Medication List - Last Reconciled 06/04/25 by Jennifer Paez MD aspirin 81 mg PO DAILY 90 days atenolol 12.5 mg PO DAILY calcium carbonate-vitamin D3 250 mg-3.125 mcg (125 unit) (Oyster Shell Calcium- Vitamin D3) 1 tab PO BID 90 days cyanocobalamin (vitamin B-12) 1,000 mcg IM QMONTH 1 month donepezil 10 mg PO DAILY escitalopram oxalate 5 mg PO DAILY 90 days insulin syringe-needle U-100 (Advocate Syringes) Use 1 syringe once a month levothyroxine 88 mcg PO QAM lisinopril 10 mg PO DAILY 90 days metformin 500 mg PO BID 90 days nystatin 1 appl topical BID 30 days simvastatin 40 mg PO QPM spironolactone 50 mg PO DAILY Tobacco use date assessed: 01/30/25 Fall risk assessment: No Falls in past year Last assessed Fall Risk: 06/04/25 Dental Screening Dental Screen Date: 01/30/25 HPI HPI Comments History of Present Illness Details The patient is a 79 year old female presenting for follow-up for her diabetes, hypertension, hyperlipidemia, mild cognitive impairment, hypothyroidism and B12 deficiency. Her A1c was 6.9%, indicating good glycemic control. She takes metformin 500 mg twice a day. She has a history of memory issues, for which she saw a neurologist last month. Her has noted the memory problems. Donepezil was added by her neurologist in April. The patient also has a history of vitamin B12 deficiency and was tested negative for pernicious anemia. Her other chronic conditions include well-controlled blood pressure. For hyperlipidemia, her LDL was close to goal at the last check. Her current medications include baby aspirin, atenolol, calcium with vitamin D, escitalopram 5 mg, levothyroxine 88 mcg, lisinopril 10 mg, simvastatin 40 mg, and spironolactone 50 mg daily. She has an allergy to sulfa, which causes hives. [facility] Surgical History History of bilateral knee replacement History of left hip replacement History of surgery History of right hip replacement History of hand surgery History of arthroscopy History of cholecystectomy History of History of tonsillectomy History of History of surgery on left wrist Family History Mother No problems noted. Father Cancer Mother Hypertension Social History Housing: House Alcohol intake: current Alcohol intake frequency: a few times a month Alcohol type: wine Patient Tobacco Use Status: Never used Tobacco Tobacco use type: Cigarette e-Cigarette/Vaping Use: Never Used Second Hand Smoke Exposure: No service: No Current occupational status: unemployed and disabled Cognitive needs: No Hearing needs: No Vision needs: Yes Questionnaire Thrive Questionnaire Date Thrive assessed: 01/30/25 I am a: Patient What is your living situation today?: I have a steady place to live Within the past 12 months, did the food you bought not last and you didn't have the money to get more?: Never true Within the past 12 months, did you worry whether your food would run out before you got money to buy more?: Never true Do you have trouble paying for medicines?: No Do you have trouble getting transportation to medical appointments?: No Do you have trouble paying your heating and electricity bill?: No Do you have trouble taking care of your child, family member or friend?: No Do you have trouble with day-to-day activities such as bathing, preparing meals, shopping, managing finances, etc.?: No Are you currently unemployed and looking for a job?: No Are you interested in more education?: No Please select the resources that you would like help with: None Currently or been in a relationship where the following occur: No concerns reported THRIVE Score: 0 ACOSTA-7 AMB Questionnaire ACOSTA-7 Date ACOSTA - 7 assessed: 01/30/25 Source: Developed by Drs. Jose Wu, Mireya BJax Berman and colleagues, with an educational porfirio from [employer]. Review of Systems Const All systems reviewed & are unremarkable except as noted in HPI and below Card Denies chest pain at rest, Denies chest pain with activity, Denies edema, Denies irregular heart rhythm, Denies claudication, Denies dyspnea, Denies dyspnea on exertion, Denies orthopnea, Denies paroxysmal nocturnal dyspnea and Denies slow heart rate Resp Denies cough, Denies dyspnea and Denies dyspnea on exertion Physical exam (Primary Care) Vital Signs: Last Vital Signs Pulse 80 06/04/25 08:46 BP 134/76 06/04/25 08:46 Pulse Ox 98 06/04/25 08:46 Oxygen Delivery Method Room Air 06/04/25 08:46 BMI result Body Mass Index 35.6 BMI Assessment/Plan discussion: High BMI High, discussed plan: lifestyle, weight reduction, dietary and physical activity Tobacco/Smoking Status: Tobacco use Status Tobacco use date assessed 01/30/25 06/04/25 08:47 Patient Tobacco Use Status Never used Tobacco 06/04/25 08:47 Tobacco use type Cigarette 06/04/25 08:47 e-Cigarette/Vaping Use Never Used 06/04/25 08:47 Thrive Assessment: Date of Thrive Assessment Date Thrive assessed 01/30/25 06/04/25 08:47 Currently or been in a relationship where the following occur: No concerns reported Resp Effort & Inspection: normal respiratory effort Auscultation: clear to auscultation bilaterally Cardio Jugular venous distension: no JVD Rate: regular rate Rhythm: regular rhythm Heart sounds: S1 normal heart sound present and S2 normal heart sound present Extrem General: Yes full ROM Office Procedures Flu Questionnaire Does the patient have a severe egg allergy?: No Does the patient have severe life threatening allergies?: No Does the patient have a fever or illness today?: No Has the patient ever had Guillain-[place] Syndrome?: No Has the patient ever had any past reaction to a flu shot?: No Results AMB Hemoglobin A1c AMB Hemoglobin A1c 6.9 % Last Edit by Tawny Rodriguez CMA on 06/04/25 09 :11 Immunizations Fluarix [id number] (PF) 45 mcg (15 mcg x 3)/0.5 mL IM syringe Performing Provider: Jennifer Paez MD Performing Location: [facility] [place] [facility] Administered by: June Love LPN on 06/04/25 09:38 Dose Route Admin Location Dispensed Lot Number Expiration Date NDC Director Of Scout Work 0.5 mL IM Left Deltoid 0.5 mL [id number] 12/23/25 99655-855-65 [employer]LA[employer]O SMITHKLINE VIS Given Date VIS Provided VIS Publication Date 06/04/25 Single Vaccine 24 Eligibility Eligibility Date Funding Source Not VFC Eligible 06/04/25 Private pneumoc 20-sky conj-dip cr(PF) 0.5 mL IM syringe Performing Provider: Jennifer Paez MD Performing Location: [facility] [place] [facility] Administered by: June Love LPN on 06/04/25 09:38 Dose Route Admin Location Dispensed Lot Number Expiration Date ND Director Of Scout Work 0.5 mL IM Left Deltoid 0.5 mL [id number] 03/25/26 3755-4809-64 [employer]loom Total Dispensed Waste 0.5 mL 0 % VIS Given Date VIS Provided VIS Publication Date 06/04/25 Single Vaccine 24 Eligibility Eligibility Date Funding Source Not VF Eligible 06/04/25 Private Results Reviewed Results Reviewed: Laboratory Last Values Hgb A1c (Clinic) 6.9 % (4.0-6.0) H 06/04/25 08:48 Coding Level of Care Code Est Pt Level 4 (82202) Add On Problem Visit Only Diagnoses Type 2 diabetes mellitus with hyperglycemia, without long-term current use of insulin E11.65 Diabetes mellitus type: type 2 Diabetes mellitus termite control service representative insulin use: without jail use Diabetes mellitus complication status: with hyperglycemia Hyperlipidemia LDL goal <70 E78.5 Essential hypertension I10 Acquired hypothyroidism E03.9 Hypothyroidism type: acquired Mild cognitive impairment G31.84 Time Spent (min) 23 Assessment & Plan Assessment & Plan (1) Diabetes mellitus: Code(s): E11.9 - Type 2 diabetes mellitus without complications Category: Medical Qualifiers: Diabetes mellitus type: type 2 Diabetes mellitus termite control service representative insulin use: without termite control service representative use Diabetes mellitus complication status: with hyperglycemia Qualified Code(s): E11.65 - Type 2 diabetes mellitus with hyperglycemia (2) Hyperlipidemia LDL goal <70: Code(s): E78.5 - Hyperlipidemia, unspecified Category: Medical (3) Essential hypertension: Code(s): I10 - Essential (primary) hypertension Category: Medical (4) Hypothyroidism: Code(s): E03.9 - Hypothyroidism, unspecified Category: Medical Qualifiers: Hypothyroidism type: acquired Qualified Code(s): E03.9 - Hypothyroidism, unspecified (5) Mild cognitive impairment: Comment: ? vascular worsened by B 12 def Code(s): G31.84 - Mild cognitive impairment of uncertain or unknown etiology Category: Medical Plan Plan 1. Memory Impairment She was seen by neurology last month for memory issues. A prescription for donepezil will be sent to the pharmacy to be started to help with memory. An EKG was requested by her neurologist and will be completed today. 2. Vitamin B12 Deficiency Her vitamin B12 levels were low previously. A prescription for vitamin B12 will be sent to the pharmacy and she is advised to continue taking it as it may help with memory. 3. Preventative Care Blood work will be done today to monitor her chronic conditions. She will receive the flu shot and the PCV20 pneumonia vaccine today. She is encouraged to continue efforts with weight loss. 4. Diabetes mellitus type 2 Continue metformin. A1c goal is equal or less than 7%. 5. Essential hypertension Continue spironolactone. Blood pressure goal is equal or less than 130/80. 6. Hyperlipidemia Continue statins. LDL goal less than 70. Orders: Orders ECG 12 lead EKG Today R94.31 - Abnormal electrocardiogram [ECG] [EKG] Lipid Panel Today E78.5 - Hyperlipidemia, unspecified Vitamin B12 and Folate Today E53.8 - Deficiency of other specified B group vitamins Vitamin D 25-OH Total Today E55.9 - Vitamin D deficiency, unspecified IRON PROFILE Today D64.9 - Anemia, unspecified Comprehensive [place]. Panel Fast Today I10 - Essential (primary) hypertension Pneumococcal 20 Immunization Today Z23 - Encounter for immunization Thyroid Stimulating Hormone Today E03.9 - Hypothyroidism, unspecified AMB Hemoglobin A1c Today Z13.9 - Encounter for screening, unspecified Complete Blood Count Auto Diff Today D64.9 - Anemia, unspecified Microalbumin, Random (w Creat) Today R80.9 - Proteinuria, unspecified Influenza [id number] Immunization Today Z23 - Encounter for immunization Medications: Changed From spironolactone 50 mg PO DAILY To spironolactone 50 mg PO DAILY 90 tabs 1RF 90 days From atenolol 12.5 mg PO DAILY To atenolol 12.5 mg (1/2 x 25 mg) PO DAILY 45 tabs 1RF 90 days From levothyroxine 88 mcg PO QAM To levothyroxine 88 mcg PO QAM 90 tabs 1RF 90 days From simvastatin 40 mg PO QPM To simvastatin 40 mg PO QPM 90 tabs 1RF 90 days Refilled cyanocobalamin (vitamin B-12) 1,000 mcg IM QMONTH 1 mL 6RF 1 month E53.8 - Deficiency of other specified B group vitamins aspirin 81 mg PO DAILY 90 tabs 1RF 90 days calcium carbonate-vitamin D3 250 mg-3.125 mcg (125 unit) (Oyster Shell Calcium- Vitamin D3) 1 tab PO BID 180 tabs 3RF 90 days donepezil 1/2 tab qd for 4 weeks then 1 tabq d 10 mg PO DAILY 30 tabs 6RF escitalopram oxalate 5 mg PO DAILY 90 tabs 1RF 90 days lisinopril 10 mg PO DAILY 90 tabs 1RF 90 days metformin 500 mg PO BID 180 tabs 1RF 90 days
== END 2025-06-04 09:40 | disposition home or self-care (01) ==
LOC: HO.HMCH 08:38
PROVIDERS: PCP Internal Medicine; Visit Provider Internal Medicine
DX: E11.65 Type 2 diabetes mellitus with hyperglycemia (principal); E78.5 Hyperlipidemia, unspecified; I10 Essential (primary) hypertension; E03.9 Hypothyroidism, unspecified; G31.84 Mild cognitive impairment of uncertain or unknown etiology; Z13.9 Encounter for screening, unspecified; Z23 Encounter for immunization

== ENCOUNTER → 2025-06-04 08:37 | Outpatient (BNVA) | payer OTHER, SELFPAY | PROVIDERS: PCP Internal Medicine; Visit Provider Internal Medicine | DX: Z00.00 Encounter for general adult medical examination without abnormal findings (principal); G31.84 Mild cognitive impairment of uncertain or unknown etiology; Z23 Encounter for immunization; E53.8 Deficiency of other specified B group vitamins; E11.65 Type 2 diabetes mellitus with hyperglycemia; E78.5 Hyperlipidemia, unspecified; I10 Essential (primary) hypertension; E55.9 Vitamin D deficiency, unspecified; R80.9 Proteinuria, unspecified | CPT/HCPCS: 83036; 90471; 90472; 90656; 90677 ==

== ENCOUNTER 2025-06-10 09:49 | Outpatient (AMB) | payer MEDICARE, SELFPAY ==
[2025-06-10 09:58] VITALS: BP 124/62; RESP 14; BMI 34.8
--- NOTE | 2025-06-10 09:58 | MHC.PC.OV ---
Vital Signs 06/10/25 09:58 Height 4 ft 11.65 in Weight 176 lb 6 oz BMI 34.8 BP 124/62 Blood Pressure Location Rt brachial Position Sitting Respiration 14 Intake Visit Reasons: bp Intake Note: Rash on legs, UTI, Diarrhea Archery Instructor Required: No Accompanied by: Self / Same As Patient Allergies Sulfa (Sulfonamide Antibiotics) Allergy (Severe, Verified 06/10/25 10:20) Hives Medication List - Last Reconciled 06/10/25 by Jennifer Paez MD aspirin 81 mg PO DAILY 90 days atenolol 12.5 mg (1/2 x 25 mg) PO DAILY 90 days calcium carbonate-vitamin D3 250 mg-3.125 mcg (125 unit) (Oyster Shell Calcium-Vitamin D3) 1 tab PO BID 90 days cyanocobalamin (vitamin B-12) 1,000 mcg IM QMONTH 1 month donepezil 10 mg PO DAILY escitalopram oxalate 5 mg PO DAILY 90 days insulin syringe-needle U-100 (Advocate Syringes) Use 1 syringe once a month levothyroxine 88 mcg PO QAM 90 days lisinopril 10 mg PO DAILY 90 days metformin 500 mg PO BID 90 days nystatin 1 appl topical BID 30 days simvastatin 40 mg PO QPM 90 days spironolactone 50 mg PO DAILY 90 days Tobacco use date assessed: 01/30/25 Fall risk assessment: No Falls in past year Last assessed Fall Risk: 06/04/25 Dental Screening Dental Screen Date: 06/10/25 Did you have a dental visit in the last 12 months?: Yes Did you have a dental problem in the last 6 months where you did not have access to dental care?: No Was dental information given to patient?: Patient has dentist HPI HPI Comments History of Present Illness Details The patient is a 79 year old female presenting for a follow-up on her blood pressure. Her blood pressure is well-controlled with a recent reading of 124/62 mmHg. The patient reports experiencing diarrhea and associated stomach pain, which is suspected to be a side effect of metformin. Her last hemoglobin A1c, checked last week, was 6.9%. She has diabetes mellitus well controlled. For memory concerns, she is followed by neurology and has an upcoming appointment in October. She currently takes donepezil for her memory. The patient has also noted some pruritus and swelling in her legs, which she scratches, causing lesions. Her current medications include aspirin 81 mg, atenolol, calcium with vitamin D, vitamin B12, donepezil, escitalopram 5 mg, levothyroxine 88 mcg, lisinopril 10 mg, metformin 500 mg twice a day, simvastatin 40 mg, and spironolactone. She has a known allergy to sulfa. [facility] Surgical History History of bilateral knee replacement History of left hip replacement History of surgery History of right hip replacement History of hand surgery History of arthroscopy History of cholecystectomy History of History of tonsillectomy History of History of surgery on left wrist Family History Mother No problems noted. Father Cancer Mother Hypertension Social History Housing: House Alcohol intake: current Alcohol intake frequency: a few times a month Alcohol type: wine Patient Tobacco Use Status: Never used Tobacco Tobacco use type: Cigarette e-Cigarette/Vaping Use: Never Used Second Hand Smoke Exposure: No service: No Current occupational status: unemployed and disabled Cognitive needs: No Hearing needs: No Vision needs: Yes Questionnaire PHQ-9 Over the last 2 weeks, how often have you been bothered by any of the following problems? 1. Little interest or pleasure in doing things: not at all 2. Feeling down, depressed, or hopeless: not at all 3. Trouble falling or staying asleep, or sleeping too much: not at all 4. Feeling tired or having little energy: not at all 5. Poor appetite or overeating: not at all 6. Feeling bad about yourself - or that you are a failure or have let yourself or your family down: not at all 7. Trouble concentrating on things, such as reading the newspaper or watching television: not at all 8. Moving or speaking so slowly that other people could have noticed. Or the opposite - being so fidgety or restless that you have been moving around a lot more than usual: not at all 9. Thoughts that you would be better off or of hurting yourself in some way: not at all Total score: 0 Depression Screening Interpretation: Negative Depression Screening Done: Yes 19842 - PHQ-9 Billing: Yes Source: Developed by Drs. Jose Wu, Mireya Manriquez, Jax Moran and colleagues, with an educational porfirio from [employer]. Thrive Questionnaire Date Thrive assessed: 06/10/25 I am a: Patient What is your living situation today?: I have a steady place to live Within the past 12 months, did the food you bought not last and you didn't have the money to get more?: Never true Within the past 12 months, did you worry whether your food would run out before you got money to buy more?: Never true Do you have trouble paying for medicines?: No Do you have trouble getting transportation to medical appointments?: No Do you have trouble paying your heating and electricity bill?: No Do you have trouble taking care of your child, family member or friend?: No Do you have trouble with day-to-day activities such as bathing, preparing meals, shopping, managing finances, etc.?: No Are you currently unemployed and looking for a job?: No Are you interested in more education?: No Please select the resources that you would like help with: None Currently or been in a relationship where the following occur: No concerns reported THRIVE Score: 0 AUDIT C Alcohol Use Questionnaire (AUDIT-C) 1. How often do you have a drink containing alcohol?: 2-4 times a month 2. How many drinks containing alcohol do you have on a typical day when you are drinking?: 1 or 2 3. How often do you have six or more drinks on one occasion?: Never Total Score: 2 Score Reviewed/Action Taken: No ACOSTA-7 AMB Questionnaire ACOSTA-7 Date ACOSTA - 7 assessed: 06/10/25 Feeling nervous, anxious, or on edge: 0 = Not at all Not being able to stop or control worryin = Not at all Worrying too much about different things: 0 = Not at all Trouble relaxin = Not at all Being so restless that it is hard to sit still: 0 = Not at all Becoming easily annoyed or irritable: 0 = Not at all Feeling afraid as if something awful might happen: 0 = Not at all Total ACOSTA-7 score (0-4 normal; 5-9 mild; 10-14 moderate; 15-21 severe): 0 Source: Developed by Drs. Jose Wu, Mireya Manriquez, Jax Moran and colleagues, with an educational porfirio from [employer]. ACOSTA-7 Assessment Billing ACOSTA-7 Assessment Tool: ACOSTA-7 Assessment 18946 Review of Systems Const All systems reviewed & are unremarkable except as noted in HPI and below Card Denies chest pain at rest, Denies chest pain with activity, Denies edema, Denies irregular heart rhythm, Denies claudication, Denies dyspnea, Denies dyspnea on exertion, Denies orthopnea, Denies paroxysmal nocturnal dyspnea and Denies slow heart rate Resp Denies cough, Denies dyspnea and Denies dyspnea on exertion GI Denies abdominal pain, Denies change in bowel habits, Denies excessive flatus, Denies nausea and Denies vomiting Physical exam (Primary Care) Vital Signs: Last Vital Signs Resp 14 06/10/25 09:58 BP 124/62 06/10/25 09:58 BMI result Body Mass Index 34.8 BMI Assessment/Plan discussion: High BMI High, discussed plan: lifestyle, weight reduction, dietary and physical activity Tobacco/Smoking Status: Tobacco use Status Tobacco use date assessed 01/30/25 06/10/25 10:03 Patient Tobacco Use Status Never used Tobacco 06/10/25 10:03 Tobacco use type Cigarette 06/10/25 10:03 e-Cigarette/Vaping Use Never Used 06/10/25 10:03 PHQ-9: PHQ-9 Score PHQ-9: Total score 0 06/10/25 10:37 Depression Screening Interpretation: Negative Thrive Assessment: Date of Thrive Assessment Date Thrive assessed 06/10/25 06/10/25 10:03 Currently or been in a relationship where the following occur: No concerns reported Resp Effort & Inspection: normal respiratory effort Auscultation: clear to auscultation bilaterally Cardio Jugular venous distension: no JVD Rate: regular rate Rhythm: regular rhythm Heart sounds: S1 normal heart sound present and S2 normal heart sound present Coding Level of Care Code Add On Preventative Visit Only Diagnoses Essential hypertension I10 Hyperlipidemia LDL goal <70 E78.5 Type 2 diabetes mellitus with hyperglycemia, without long-term current use of insulin E11.65 Diabetes mellitus type: type 2 Diabetes mellitus termite exterminator helper insulin use: without termite exterminator helper use Diabetes mellitus complication status: with hyperglycemia Mild cognitive impairment G31.84 Acquired hypothyroidism E03.9 Hypothyroidism type: acquired Additional Codes ACOSTA-7 Assessment Billing - ACOSTA-7 Assessment Tool: ACOSTA-7 Assessment 10217 ([id number]) PHQ-9 - 62745 - PHQ-9 Billing: Yes ([id number]) Time Spent (min) 23 Assessment & Plan Assessment & Plan (1) Essential hypertension: Code(s): I10 - Essential (primary) hypertension Category: Medical (2) Hyperlipidemia LDL goal <70: Code(s): E78.5 - Hyperlipidemia, unspecified Category: Medical (3) Diabetes mellitus: Code(s): E11.9 - Type 2 diabetes mellitus without complications Category: Medical Qualifiers: Diabetes mellitus type: type 2 Diabetes mellitus termite exterminator helper insulin use: without termite exterminator helper use Diabetes mellitus complication status: with hyperglycemia Qualified Code(s): E11.65 - Type 2 diabetes mellitus with hyperglycemia (4) Mild cognitive impairment: Comment: ? vascular worsened by B 12 def Code(s): G31.84 - Mild cognitive impairment of uncertain or unknown etiology Category: Medical (5) Hypothyroidism: Code(s): E03.9 - Hypothyroidism, unspecified Category: Medical Qualifiers: Hypothyroidism type: acquired Qualified Code(s): E03.9 - Hypothyroidism, unspecified Plan Plan 1. Hypertension The patient's blood pressure is well-controlled at 124/62 mmHg, which is within the goal of less than 130/80 mmHg. She will continue her current medications, including atenolol, lisinopril, and spironolactone. 2. Type 2 Diabetes Mellitus Due to side effects of diarrhea and stomach pain, metformin 500 mg twice daily will be discontinued. She will be started on Januvia 25 mg once daily, pending insurance approval. If the insurance does not approve Januvia, an alternative medication will be prescribed. 3. Lower Extremity Edema And Pruritus The patient has some swelling in her legs, which is causing pruritus and subsequent scratching with excoriations. To evaluate the etiology of the edema, fasting blood work, including kidney and liver function tests, has been ordered. For symptomatic relief of dry, itchy skin, it was recommended to apply a moisturizer such as Vaseline Intensive Care or Aquaphor. The patient was counseled to avoid scratching the area to prevent further skin breakdown, as this can release histamines and worsen the itch. 4. Memory Impairment The patient is being followed by neurology for memory concerns and has a scheduled appointment in October. She should continue her current dose of donepezil as prescribed. 5. Hypothyroidism Continue levothyroxine. Monitor TSH. 6, hyperlipidemia Continue statins. LDL goal is less than 70. Medications: New sitagliptin phosphate (Januvia) 25 mg PO DAILY 90 tabs 1RF 90 days Discontinued metformin Discontinued Reason: Patient Completed Course 500 mg PO BID 90 days 180 tabs 1RF
--- OUTSIDE RECORDS SUMMARY | 2025-06-10 11:46 | XMS_ITS | Clinical Summary ---
Author Organization [facility] Address [address] [address] Phone Care Team Providers Care History Card Clerk Name Role Phone Jeb Devlin MD Primary Care Provider Allergies Active Allergy Reactions [...] VACCINE (#1) 2025 COVID-19 VACCINE ( - 2024-2 6 season) 2025 BLOOD PRESSURE 03/02/2025 08/30/2024 TSH [...] Date/Time Associated Diagnosis Comments BASIC METABOLIC PANEL (BMP) Routine 07/25/2024 5:40 AM EST TSH WITH REFLEX Routine 07/24/2024 4:17 AM EST from Last 3 Months or Most Recently Relevant to Health Maintenance Results * (ABNORMAL) Basic metabolic panel (07/25/2024 5:40 AM EST) SODIUM 137 133 - 146 mmol/L [facility] CHLORIDE 98 96 - 108 mmol/L [facility] POTASSIUM 3.9 3.3 - 5.1 mmol/L [facility] CO2 24 21 - 35 mmol/L [facility] BUN 9 6 - 19 mg/dL [facility] CREATININE 0.80 0.5 - 1.5 mg/dL [facility] GLUCOSE 151(H) 70 - 99 mg/dL [facility] CALCIUM 8.5 8.4 - 10.3 mg/dL [facility] EGFR 75 >59 mL/min/1.7 3m2 [facility] Comment:Estimated glomerular filtration rate calculated using the CKD-EPI refit equation. ANION GAP 19 10 - 20 mmol/L [facility] Blood 07/25/2024 5:40 AM EST 07/25/2024 5:56 AM EST us Luisa Oropeza MD LAB BLOOD BKR ORDERABLES Final R esult [address] [address] * TSH with reflex (07/24/2024 4:17 AM EST) TSH 0.74 0.27 - 4.20 uIU/mL [facility] 07/24/2024 4:17 AM EST 07/24/2024 4:51 AM EST us Shankar Aguiar DO LAB BLOOD BKR ORDERABLES Final Result [address] [address] from Last 3 Months or Most Recently Relevant to Health Maintenance Insurance [employer] [place] [employer] POS PPO REPLACEMENT [employer] [place] [employer] POS PPO REPLAC[place] [address] [place] [address] MEDICARE POS PPO REPLACEMENT MEDICARE POS PPO REPLACEMENT [employer] [place] [employer] POS PPO REPLACEMENT [employer] [place] [employer] POS PPO REPLACEMENT Advance Directives For more information, please contact: [phone] (9AM - 5PM [facility], Monday-Monday) Documents on File Type Date Recorded Patient Roller Stainer Expl anation POLST 07/23/2024 polst * DNR OK to Intubate (Latest Code Status on File) Date Activated Date Inactivated Comments 07/24/2024 12:08 AM Question Answer Comments Code Status Confirmed With: Patient Code Status Communicated To: Inpatient Attending Care Teams History Card Clerk Relationship Specialty Start Date End Date Jeb Devlin MD [address] [place] [address] PCP - General Internal Medicine 09/29/22 Additional Source Comments The information contained in this document represents components of the legal health record. It is not the complete legal health record.[facility]
--- OUTSIDE RECORDS SUMMARY | 2025-06-10 11:46 | XMS_ITS | Encounter Summary ---
Author Organization [facility] Address [address] [facility] [address] [place] [address] Phone Care Team Providers Care Record Systems Analyst Name Role Phone Jeb Devlin MD Primary Care Provider [phone] Encounter Details Date Type Department Care Team ([facility] st Contact Info) Description 07/23/2024 Procedure Pass [facility], Ct Scan - [address] [address] Social History Tobacco Use Types Packs/Day Years [...] 07/23/2024 3:51 PM Gilda Liao, DELANEY * [place] Suicide Severity Rating Scale (Screener/Recent Self-Report) Question [...] documented as of this encounter Care Teams Record Systems Analyst Relationship Specialty Start Date End Date Jeb Devlin MD [address] [address] PCP - General Internal Medicine 09/29/22 documented as of this encounter Additional Source Comments The information contained in this document represents components of the legal health record. It is not the complete legal health record.[facility]
--- OUTSIDE RECORDS SUMMARY | 2025-06-10 11:46 | XMS_ITS | Clinical Summary ---
Author Organization [facility] Address [address] [place] [address] Care Team Providers Care Metal Container Maker Name Role Phone Jeb Devlin Primary Care Provider [phone] Allergies Active Allergy Reactions Criticality Noted Date [...] (03/21/2022): Added automatically from request for surgery [id number] Arthritis of right knee 10/06/2021 Pathological fracture of left scapula with delay ed healing 09/28/2021 Primary osteoarthritis of left knee 08/15/2019 Intraductal papilloma of left breast 03/08/2018 Overview (03/08/2018): Added automatically from request for surgery [id number] Assessment & Plan (04/16/2018 3:01 PM EDT): [...] 11/14/2021 11/14/2016, 03/24/2008 Hemoglobin A1C 03/24/2022 09/21/2021, 0212/2019, 06/07/2017, Additional history exists Alcohol/Substance Use Screening 06/26/2024 Depression Screening and Follow-Up 06/26/2024 Fall Risk Screening 06/26/2024 Health Care Proxy Review 06/26/2024 Social Drivers of Health Annual Screening 06/26/2024 Influenza Vaccine (#1) 2025 , 02/24/2021, 04/01/2016, Additional history exists COVID-19 Vaccine ( season) 2025 04/22/2021 Basic Metabolic Panel 07/25/2025 07/25/2024 , 07/24/2024, 07/23/2024, Additional history exists Mammogram Discontinued 10/14/2024, 09/25, 10/14/2024, Additional history exists Hepatitis B Vaccines Aged Out No long er eligible based on patient's age to complete this topic Medical Devices Implanted Type Area Blind Aide Device Identifier Shelf Expiration Date Model / Serial / Lot Cement Tobramycin Impreganated Simplex P - [id number] Implanted:Qty: 2 on 08/15/2019 by Jose Luis Kim MD at [facility] Implant Left: Knee DU 12/23/2020 6197-9-00 / / [id number] Base Tibial Fixed Bearing Cemented Size 5 Attune - [id number] Implanted:Qty: 1 on 08/15/2019 by Jose Luis Kim MD at [facility] Implant Left: Knee DEPUY 05/25/2029 1506-70-0 05 [id number] Patella Medialized Dome Cemented Aox Single Use Latex Free 32mm Attune - [id number] Implanted:Qty: 1 on 08/15/2019 by Jose Luis Kim MD at [facility] Implant Left: Knee DEPUY 03/25/2024 1518-20-0 32 / / [id number] Component Femoral Posterior Stabilized Cemented Narrow Left Sterile Latex Free Size 6n Attune - [id number] Implanted:Qty: 1 on 08/15/2019 by Jose Luis Kim MD at [facility] Implant Left: Knee DEPUY 04/25/2029 1504-10-1 26 / / [id number] Insert Tibial Fiexd Bearing Posterior Stabilizing Sterile Latex Free Size 6 5mm Attune - [id number] Implanted:Qty: 1 on 08/15/2019 by Jose Luis Kim MD at [facility] Implant Left: Knee DEPUY 02/24/2024 1516-40-6 05 / / [id number] Insert Tibial Fixed Bearing Posterior Stabilized Size 5 6mm Attune - [id number] Implanted:Qty: 1 on 10/06/2021 by Jose Luis Kim MD at [facility] Implant Right: Knee DEPUY 09/24/2023 1516-40-5 06 / / [id number] Cement Tobramycin Impreganated Simplex P - [id number] Implanted:Qty: 2 on 10/06/2021 by Jose Luis Kim MD at [facility] Implant Right: Knee DU 12/23/2022 6197-9-00 1 / / [id number] Base Tibial Fixed Bearing Cemented Size 5 Attune - [id number] Implanted:Qty: 1 on 10/06/2021 by Jose Luis Kim MD at [facility] Implant Right: Knee DEPUY 04/25/2031 1506-70-0 05 / / [id number] Patella Medialized Dome Cemented Aox Single Use Latex Free 32mm Attune - [id number] Implanted:Qty: 1 on 10/06/2021 by Jose Luis Kim MD at [facility] Implant Right: Knee DEPUY 08/23/2025 1518-20-0 32 / / [id number] Component Femoral Posterior Stabilized Cemented Right Sterile Latex Free Size 5 Attune - [id number] Implanted:Qty: 1 on 10/06/2021 by Jose Luis Kim MD at [facility] Implant Right: Knee DEPUY 08/23/2030 1504-10-2 05 / / [id number] Screw Cannulated Self-Tapping Self-Drilling Partial Threaded Stainless Steel 4.3lon34ui - [id number] Implanted:Qty: 1 on 10/06/2021 by Jose Luis Kim MD at [facility] Screw Right: Knee DEPUY [employer] 214.568 / / Screw Cannulated Self-Tapping Self-Drilling Partial Threaded Stainless Steel 4.2qhv66as - [id number] Implanted:Qty: 1 on 10/06/2021 by Jose Luis Kim MD at [facility] Screw Right: Knee DEPUY [employer] 214.572 / / Screw Cannulated Self-Tapping Self-Drilling Partial Threaded Stainless Steel 4.7lvl46kc - [id number] Implanted:Qty: 1 on 10/06/2021 by Jose Luis Kim MD at [facility] Screw Right: Knee [employer] 214.554 / / Procedures * Due to [place] state law, this organization might not be [...] to Health Maintenance Results * Due to [place] state law, this organization might not be [...] PM EDT Gabbie Miles Exam Date: 10/14/[address] [address] ROBIN Left Stereotactic Breast Biopsy ROBIN Left [...] patient's Left breast was imaged with the Cop[employer]ia digital mammography unit, and the following findings [...] obtain the completed interpretation. Adriana Parham MD [facility] BI PROCEDURES Edited Result - Final * (ABNORMAL) Basic Metabolic Panel (2021 3:59 AM EDT) NA 134(L) 135 - 145 mmol/L 2021 4:55 AM EDT [facility] K 4.6 3.5 - 5.3 mmol/L 2021 4:55 AM EDT [facility] Cl 105 97 - 110 mmol/L 2021 4:55 AM EDT [facility] CO2 25 24 - 32 mmol/L 2021 4:55 AM EDT [facility] BUN 13 7 - 23 mg/dL 2021 4:55 AM EDT [facility] Creatinine 0.70 0.50 - 1.20 mg/dL 2021 4:55 AM EDT [facility] Glucose 156(H) 70 - 99 mg/dL 2021 4:55 AM EDT [facility] Calcium 7.8(L) 8.7 - 10.7 mg/dL 2021 4:55 AM EDT [facility] Anion Gap 4(L) 5 - 15 2021 4:55 AM EDT [facility] eGFR 90 >=90 mL/min/1. 73m2 2021 4:55 AM EDT [facility] Comment: Estimated [...] MD LAB BLOOD ORDERABLES Final Res ult [facility] [address] [place] [address], [place] * (ABNORMAL) Hemoglobin A1c (09/21/2021 1:25 PM EDT) Hemoglobin A1C 6.2(H) <5.7 % of total Hgb 09/22/2021 4:39 AM EDT [facility] Comment: For someone without known diabetes, a [...] (MG/DL) 131 mg/dL 09/22/2021 4:39 AM EDT [facility] eAG (MMOL/L) 7.3 mmol/L 09/22/2021 4:39 AM EDT [facility] Blood Structure of peripheral vein / Unknown Venipuncture / Unknown 09/21/2021 1:25 PM EDT 09/21/2021 3:16 PM EDT Narrative [facility] - 09/22/2021 4:39 AM EDT [facility] Received Date: Vaibhav Carmona MD LAB BLOOD ORDERABLES Final Result [facility] [address] [facility] [address], [place] [address], [email or web address] [address] [facility] [address], [place] [address], [place] [phone] * Eye Exam, Diabetic (09/04/2018) us Unknown Provider HEALTH MAINTENANCE Final Res ult * Microalbumin/Creatinine Urine, Random (11/18/2016 8:44 AM EDT) Creatinine, Random Urine 189 20 - 320 mg/dL [facility] Microalbumin 1.2 mg/dL [facility] Comment: Reference Range Not established Microalbumin/Crea tinine Ratio, Random Urine 6 <30 mcg/mg creat [email or web address] Comment: . The ADA defines abnormalities [...] AM EDT 11/18/2016 5:16 PM EDT Narrative [email or web address] - 11/19/2016 9:00 AM EDT Report Comments: Received Date: [id number] us Stewart Nazario MD LAB URINE ORDERABLES Fin al Result [email or web address] [address], [facility] [address], * COLONOSCOPY (04/05/2016 7:44 AM EDT) Narrative [...] Most Recently Relevant to Health Maintenance Insurance [facility] Advance Directives Documents on File Type Date Recorded Patient Production Supervisor Off Shift Expl anation Health Care Proxy 10/06/2021 10:11 AM Health Care Proxy 01/12/2021 Health Care Proxy 08/05/2019 8:57 AM Advance Directive 01/22/2016 12:00 AM Adva nce Care Directives Health Care Proxy 01/17/2016 12:00 AM Heal Care Proxy Advance Directive 08/18/2014 12:00 AM angeline Kim edical Dec Making (Adv.Dir) Advance Directive 08/17/2014 [...] 6:44 AM 04/06/2018 4:39 PM Care Teams Metal Container Maker Relationship Specialty Start Date End Date Jeb Devlin [address] [place] [address] PCP - General Internal Medicine 02/27/19
--- OUTSIDE RECORDS SUMMARY | 2025-06-10 11:47 | XMS_ITS | Encounter Summary ---
Author Organization [facility] Address [address] [place] [address] Phone Care Team Providers Care Distillery Miller Helper Name Role Phone Unknown, Unknown Primary Care Provider Jeb Cantu MD Primary Care Provider [phone] Encounter Details Date Type Department Care Team (Late st Contact Info) Description 08/05/2022 Transcribe Orders [facility] [address] [place] [phone] Nida Purcell MD [address] [place] [phone] Social History Tobacco Use Types Packs/Day Years [...] documented as of this encounter Care Teams Distillery Miller Helper Relationship Specialty Start Date End Date Unknown, Unknown, PCP - General 08/09/22 09/28/22 Jeb Devlin MD [address] [place] [address] PCP - General Internal Medicine 09/29/22 documented as of this encounter Additional Source Comments The information contained in this document represents components of the legal health record. It is not the complete legal health record.[facility]
--- OUTSIDE RECORDS SUMMARY | 2025-06-10 11:47 | XMS_ITS | Encounter Summary ---
Author Organization [facility] Address [address] [place] [address] Care Team Providers Care Sports Official Name Role Phone Jeb Devlin Primary Care Provider [phone] Encounter Details Date Type Department Care Team (Late st Contact Info) Description 12/01/2021 [employer]oon Message [facility] Xray [address] [place] [address] [employer] Provider [address] [place] [phone] Your Recent Radiology Visit Social History Tobacco [...] on filedocumented in this encounter Care Teams Sports Official Relationship Specialty Start Date End Date Jeb Devlin [address] [place] [address] PCP - General Internal Medicine 02/27/19 documented as of this encounter
== END 2025-06-10 10:36 | disposition home or self-care (01) ==
LOC: HO.HMCH 09:50
PROVIDERS: PCP Internal Medicine; Visit Provider Internal Medicine
DX: I10 Essential (primary) hypertension (principal); E78.5 Hyperlipidemia, unspecified; E11.65 Type 2 diabetes mellitus with hyperglycemia; G31.84 Mild cognitive impairment of uncertain or unknown etiology; E03.9 Hypothyroidism, unspecified

== ENCOUNTER → 2025-06-10 09:49 | Outpatient (BNVA) | payer MEDICARE, SELFPAY | PROVIDERS: Visit Provider Internal Medicine | DX: I10 Essential (primary) hypertension (principal); E78.5 Hyperlipidemia, unspecified; E11.65 Type 2 diabetes mellitus with hyperglycemia; G31.84 Mild cognitive impairment of uncertain or unknown etiology; E03.9 Hypothyroidism, unspecified; R60.0 Localized edema; L29.9 Pruritus, unspecified; T38.3X5A Adverse effect of insulin and oral hypoglycemic [antidiabetic] drugs, initial encounter; R19.7 Diarrhea, unspecified; R10.9 Unspecified abdominal pain; Z13.31 Encounter for screening for depression; Z13.39 Encounter for screening examination for other mental health and behavioral disorders | CPT/HCPCS: 96127; 99212 ==

== ENCOUNTER 2025-06-12 09:39 | Outpatient (REF) | payer MEDICARE, SELFPAY ==
[2025-06-12 10:20] LABS: MANUAL DIFF FLAG NO
[2025-06-12 10:45] LABS: Hematocrit 41.5 % (37.0-47.0); Hemoglobin 13.3 g/dl (12.0-16.0); Imm Gran Abs Auto 0.08 X10*3/uL (0.00-0.03); Imm Gran Pct Auto 0.6 % (0.0-0.4); Lymphocytes Absolute Auto 2.4 X10*3/uL (1.2-4.9); Mean Corpuscular HGB Conc 32.0 g/dl (31.0-35.0); Mean Corpuscular Hemoglobin 29.0 pg (27.0-33.0); Mean Corpuscular Volume 90.6 fL (80.0-98.0); NRBC Abs Auto 0.000 X10*3/uL (0.0-0.012); NRBC Pct Auto 0.0 /100WBC (0.0-0.2); Platelet Count 260 X10*3/uL (160-400); Red Blood Count 4.58 X10*6/uL (4.20-5.50); White Blood Count 14.2 X10*3/uL (4.8-10.8)
[2025-06-12 12:21] LABS: Thyroid Stimulating Hormone 0.81 uIU/mL (0.32-4.0)
[2025-06-12 12:27] LABS: Microalbum/Creatinine Ratio Ur 10.8 ug/mg cr (<30)
[2025-06-12 12:34] LABS: Anion Gap 14 (12-20)
[2025-06-12 12:39] LABS: Alanine Aminotransferase 13 U/L (0-31); Albumin Level 4.3 g/dL (3.5-5.0); Alkaline Phosphatase 64 U/L (39-117); Aspartate Amino Transferase 23 U/L (5-31); Blood Urea Nitrogen 20 mg/dL (9-16); Calcium 9.4 mg/dL (8.4-10.2); Carbon Dioxide 25 mmol/L (22-29); Chloride 104 mmol/L (96-108); Cholesterol 165 mg/dL (<200); Estimated Glomerular Filt Rate 52; HDL Cholesterol 43 mg/dL (>40); Iron 68 mcg/dL (30-160); Percent Iron Saturation 23 % (15-50); Potassium 4.1 mmol/L (3.3-5.1); Sodium 139 mmol/L (135-145); Total Iron Binding Capacity 291 mcg/dL (228-428); Total Protein 7.1 g/dL (6.5-8.0); Triglycerides 162 mg/dL (<150); Unsaturated Iron Binding 223 ug/dL
[2025-06-12 12:40] LABS: Folate 5.1 ng/mL (> or = 4.0); Vitamin B12 > 2000 pg/mL (200-900)
== END 2025-06-12 09:40 | disposition home or self-care (01) ==
LOC: HO.LAB 09:39
PROVIDERS: Psychiatry & Neurology Neurology; PCP Internal Medicine; Visit Provider Internal Medicine
DX: I10 Essential (primary) hypertension (principal); G31.84 Mild cognitive impairment of uncertain or unknown etiology; E55.9 Vitamin D deficiency, unspecified; D64.9 Anemia, unspecified; E03.9 Hypothyroidism, unspecified; R80.9 Proteinuria, unspecified; E53.8 Deficiency of other specified B group vitamins; E78.00 Pure hypercholesterolemia, unspecified
CPT/HCPCS: 36415; 80053; 80061; 82043; 82306; 82542; 82570; 82607; 82746; 83540; 84443; 85025